=== PATIENT | female | born 1960 | race Caucasian/White ===

== ENCOUNTER 2018-11-25 16:32 | Emergency (ER) | payer MEDICAID, SELFPAY ==
[2018-11-25 16:39] VITALS: BP 143/74; PULSE 93; RESP 12; TEMP 36.8; O2SAT 98
--- NOTE | 2018-11-25 16:45 | W.ED.GENAD ---
Discharge Plan Disposition Patient Disposition: HOME Condition: Fair Discharge Details Chief Complaint: EarProblem Clinical Impression: Otitis externa Primary Care Provider: Lilia Hernández ED Provider: Tiffany Aguilar Home Meds and New Rx's Prescriptions: Continued lisinopril-hydrochlorothiazide 1 EACH tablet 1 ea PO DAILY RF: 0 L. acidophilus-dig enz cmb 5 [Probiotic-Digestive Enzymes] 1 EACH capsule 2 ea PO DAILY RF: 0 Brewers Yeast 1,000 mg PO BID RF: 0 venlafaxine [Effexor XR] 37.5 MG capsule,extended release 24hr 75 mg PO DAILY RF: 0 venlafaxine 75 mg Tablet 75 mg PO DAILY RF: 0 omeprazole 20 mg Tablet,Disintegrat, Delay Rel 10 - 20 mg PO PRN PRNRF: 0 No Action aspirin [Aspir-81] 81 MG tablet,delayed release (DR/EC) 81 mg PO DAILY RF: 0 Discharge Instructions Instructions: Otitis Externa (ED) Additional Instructions: Encourage hydration. Please continue with antibiotic drops as prescribed by primary care. Please follow-up with primary care on Saturday as previously recommended. If you develop increased pain, fever/chills, discharge from the ear or the new/worsening symptoms please seek care urgently once again. Referrals: Lilia Hernández [Primary Care Provider] - Discharge Data Discharge Date/Time-TO BE ENTERED AT DEPARTURE: 11/25/18 17:02 Medical Decision Making Patient is a 58-year-old female presenting today with chief complaint of left ear pain. She reports the pain began approximate 1 week ago. She was seen by her primary care 5 days ago was placed on Ciprodex eardrops. She reports that she had been using them and initially felt improved. Is now concerned that she is having difficulty with the eardrops going into the ear. On exam, her canal appears quite improved. Patient reports that primary care obtained a swab, do not see any exudate to suggest swallow area at this time. There is no erythema or swelling. No acute abnormalities of the tympanic membrane. No mastoid tenderness. Advised that the Ciprodex does appear to be improving. Advised that she continue with this. She is concerned that the eardrops continue to fall out, advised that she remain in a lateral decubitus position for 15 minutes after application of the drops, this was shown to the patient to continue with this. Advise follow-up with primary care on Saturday as it was previously scheduled. Advised on new/worsening symptoms that should prompt her to seek care urgently once again. All of her questions and concerns were addressed and she is in agreement this plan HPI General Mode of arrival: ambulatory. Date/Time Provider Initiated Documentation: 11/25/18 16:44. Limitations to Documentation: no limitations. Information obtained by: patient, family (accompanied by ) and RN notes reviewed. History of Present Illness 58 year old F presents to the emergency department with the chief complaint of left ear pain, described as moderate, with intensity rated at 5. Quality is described as aching, and is localized to the face. Patient reports no radiation. Patient started experiencing this day(s) (4) and it has been constant. Medication improves symptom(s), No exacerbating factors reported . Patient notes no other symptoms.; denies fever/chills, headaches, loss of appetite, nausea/vomiting, rash and shortness of breath. Patient did receive the following treatments prior to arrival, other (ciprodex drops) Related Data Home Medications Medication Instructions Recorded Confirmed Brewers Yeast 1,000 mg PO BID 05/21/16 07/10/16 L. acidophilus-dig enz cmb 5 2 ea PO DAILY 05/21/16 07/10/16 [Probiotic-Digestive Enzymes] aspirin [Aspir-81] 81 mg PO DAILY 05/21/16 07/10/16 lisinopril-hydrochlorothiazide 1 ea PO DAILY 05/21/16 11/25/18 venlafaxine [Effexor XR] 75 mg PO DAILY capcr 05/26/16 11/25/18 omeprazole 10 - 20 mg PO PRN PRN 11/25/18 11/25/18 venlafaxine 75 mg PO DAILY 11/25/18 11/25/18 Previous Rx's Medication Instructions Recorded venlafaxine [Effexor XR] 75 mg PO DAILY capcr 05/26/16 Allergies Allergy/AdvReac Type Severity Reaction Status Date / Time sulfamethoxazole Allergy Unknown Unverified 11/25/18 16:44 [From Bactrim] trimethoprim [From Bactrim] Allergy Unknown Unverified 11/25/18 16:44 vancomycin Allergy Unknown Red man Unverified 11/25/18 16:44 syndrome General Stated Complaint: EarProblem MARY: 4 Review of Systems Constitutional Reports as per HPI and Denies headache(s) Eyes Reports as per HPI, Denies eye discharge and Denies irritation ENT Reports as per HPI and Denies headache(s) Cardiovascular Reports as per HPI, Denies chest pain and Denies dyspnea Respiratory Reports as per HPI and Denies dyspnea Gastrointestinal Reports as per HPI, Denies abdominal pain, Denies change in bowel habits, Denies nausea and Denies vomiting Integumentary/Breasts Reports as per HPI and Denies rash Neurologic Reports as per HPI and Denies headache(s) PFSH Medical History Depression Essential hypertension GERD (gastroesophageal reflux disease) MRSA (methicillin resistant staph aureus) culture positive Surgical History Incision & Drainage, Abscess or Hematoma Social History Smoking/Tobacco Use Status: Never Alcohol Intake: never Drug use: Never Substance use type: does not use Do you feel safe at home: Yes Do you feel safe in your relationship?: Yes Exam Const General: cooperative, healthy appearing, comfortable, no acute distress, well developed and well groomed Nutritional Appearance: average body habitus and well nourished Orientation: alert and awake [facility] Head: normal to inspection, normocephalic and atraumatic Ears: hearing grossly normal bilaterally, external ears normal and TM's normal bilaterally General nose exam: external nose normal and nares normal Face and sinus: normal facial exam, sinuses nontender and face symmetric Mouth: oral mucosae normal, lip normal, tongue normal, oropharynx normal and moist mucous membranes Teeth and gingiva: dentition normal Throat: posterior oropharynx normal, tonsils normal and uvula midline Eyes General: appearance normal, both eyes and all related structures Neck Neck: normal visual inspection, full ROM, no lymphadenopathy and no meningeal signs Resp Effort & Inspection: normal respiratory effort, able to speak in complete sentences and no respiratory distress Auscultation: clear to auscultation bilaterally, no rales, no rhonchi and no wheezes Cardio Rate: regular rate Rhythm: regular rhythm Heart Sounds: S1 normal and S2 normal Skin General skin exam: no rashes or lesions noted Neuro General: alert and awake Cognition: normal cognition Speech: speech normal Gait: normal gait Psych Appearance: grossly normal and well kempt Mental Status: mental status grossly normal Speech and Movement: speech and movement normal Course Vital Signs Temperature 36.8 C 11/25/18 16:39 Pulse 93 H 11/25/18 16:39 Respiratory Rate 12 11/25/18 16:39 Blood Pressure 143/74 H 11/25/18 16:39 Pulse Oximetry 98 11/25/18 16:39 Temperature 36.8 C 11/25/18 16:39 Temperature Source Temporal Artery Scan 11/25/18 16:39 Pulse 93 H 11/25/18 16:39 Respiratory Rate 12 11/25/18 16:39 Respiratory Effort Non-Labored 11/25/18 16:42 Blood Pressure 143/74 H 11/25/18 16:39 Blood Pressure Position Sitting 11/25/18 16:39 Pulse Oximetry 98 11/25/18 16:39 Oxygen Delivery Method Room Air 11/25/18 16:39 Oxygen Flow Rate 0 11/25/18 16:39 Pain Level 5 11/25/18 16:39
--- NOTE | 2018-11-25 16:59 | ED.GENADUL_ITS ---
Discharge Plan Disposition Patient Disposition: HOME Condition: Fair Discharge Details Chief Complaint: EarProblem Clinical Impression: Otitis externa Primary Care Provider: Lilia Hernández ED Provider: Tiffany Aguilar Home Meds and New Rx's Prescriptions: Continued lisinopril-hydrochlorothiazide 1 EACH tablet 1 ea PO DAILY RF: 0 L. acidophilus-dig enz cmb 5 [Probiotic-Digestive Enzymes] 1 EACH capsule 2 ea PO DAILY RF: 0 Brewers Yeast 1,000 mg PO BID RF: 0 venlafaxine [Effexor XR] 37.5 MG capsule,extended release 24hr 75 mg PO DAILY RF: 0 venlafaxine 75 mg Tablet 75 mg PO DAILY RF: 0 omeprazole 20 mg Tablet,Disintegrat, Delay Rel 10 - 20 mg PO PRN PRNRF: 0 No Action aspirin [Aspir-81] 81 MG tablet,delayed release (DR/EC) 81 mg PO DAILY RF: 0 Discharge Instructions Instructions: Otitis Externa (ED) Additional Instructions: Encourage hydration. Please continue with antibiotic drops as prescribed by [facility]. Please follow-up with primary care on Saturday as previously recommended. If you develop increased pain, fever/chills, discharge from the ear or the new/worsening symptoms please seek care urgently once again. Referrals: Lilia Hernández [Primary Care Provider] - Discharge Data Discharge Date/Time-TO BE ENTERED AT DEPARTURE: 11/25/18 17:02 Medical Decision Making Patient is a 58-year-old female presenting today with chief complaint of left ear pain. She reports the pain began approximate 1 week ago. She was seen by her primary care 5 days ago was placed on Ciprodex eardrops. She reports that she had been using them and initially felt improved. Is now concerned that she is having difficulty with the eardrops going into the ear. On exam, her canal appears quite improved. Patient reports that primary care obtained a swab, do not see any exudate to suggest swallow area at this time. There is no erythema or swelling. No acute abnormalities of the tympanic membrane. No mastoid tenderness. Advised that the Ciprodex does appear to be improving. Advised that she continue with this. She is concerned that the eardrops continue to fall out, advised that she remain in a lateral decubitus position for 15 minutes after application of the drops, this was shown to the patient to continue with this. Advise follow-up with primary care on Saturday as it was previously scheduled. Advised on new/worsening symptoms that should prompt her to seek care urgently once again. All of her questions and concerns were addressed and she is in agreement this plan HPI General Mode of arrival: ambulatory . Date/Time Provider Initiated Documentation: 11/25/18 16:44 . Limitations to Documentation: no limitations . Information obtained by: patient, family (accompanied by ) and RN notes reviewed . History of Present Illness 58 year old F presents to the emergency department with the chief complaint of left ear pain, described as moderate, with intensity rated at 5. Quality is described as aching, and is localized to the face. Patient reports no radiation. Patient started experiencing this day(s) (4) and it has been constant. Medication improves symptom(s), No exacerbating factors reported . Patient notes no other symptoms.; denies fever/chills, headaches, loss of appetite, nausea/vomiting, rash and shortness of breath. Patient did receive the following treatments prior to arrival, other (ciprodex drops) Related Data Home Medications Medication Instructions Recorded Confirmed Brewers Yeast 1,000 mg PO BID 05/21/16 07/10/16 L. acidophilus-dig enz cmb 5 2 ea PO DAILY 05/21/16 07/10/16 [Probiotic-Digestive Enzymes] aspirin [Aspir-81] 81 mg PO DAILY 05/21/16 07/10/16 lisinopril-hydrochlorothiazide 1 ea PO DAILY 05/21/16 11/25/18 venlafaxine [Effexor XR] 75 mg PO DAILY capcr 05/26/16 11/25/18 omeprazole 10 - 20 mg PO PRN PRN 11/25/18 11/25/18 venlafaxine 75 mg PO DAILY 11/25/18 11/25/18 Previous Rx's Medication Instructions Recorded venlafaxine [Effexor XR] 75 mg PO DAILY capcr 05/26/16 Allergies Allergy/AdvReac Type Severity Reaction Status Date / Time sulfamethoxazole Allergy Unknown Unverified 11/25/18 16:44 [From Bactrim] trimethoprim [From Bactrim] Allergy Unknown Unverified 11/25/18 16:44 vancomycin Allergy Unknown Red man Unverified 11/25/18 16:44 syndrome General Stated Complaint: EarProblem MARY: 4 Review of Systems Constitutional Reports as per HPI and Denies headache(s) Eyes Reports as per HPI, Denies eye discharge and Denies irritation ENT Reports as per HPI and Denies headache(s) Cardiovascular Reports as per HPI, Denies chest pain and Denies dyspnea Respiratory Reports as per HPI and Denies dyspnea Gastrointestinal Reports as per HPI, Denies abdominal pain, Denies change in bowel habits, Denies nausea and Denies vomiting Integumentary/Breasts Reports as per HPI and Denies rash Neurologic Reports as per HPI and Denies headache(s) PFSH Medical History Depression Essential hypertension GERD (gastroesophageal reflux disease) MRSA (methicillin resistant staph aureus) culture positive Surgical History Incision & Drainage, Abscess or Hematoma Social History Smoking/Tobacco Use Status: Never Alcohol Intake: never Drug use: Never Substance use type: does not use Do you feel safe at home: Yes Do you feel safe in your relationship?: Yes Exam Const General: cooperative, healthy appearing, comfortable, no acute distress, well developed and well groomed Nutritional Appearance: average body habitus and well nourished Orientation: alert and awake [facility] Head: normal to inspection, normocephalic and atraumatic Ears: hearing grossly normal bilaterally, external ears normal and TM's normal bilaterally General nose exam: external nose normal and nares normal Face and sinus: normal facial exam, sinuses nontender and face symmetric Mouth: oral mucosae normal, lip normal, tongue normal, oropharynx normal and moist mucous membranes Teeth and gingiva: dentition normal Throat: posterior oropharynx normal, tonsils normal and uvula midline Eyes General: appearance normal, both eyes and all related structures Neck Neck: normal visual inspection, full ROM, no lymphadenopathy and no meningeal signs Resp Effort & Inspection: normal respiratory effort, able to speak in complete sentences and no respiratory distress Auscultation: clear to auscultation bilaterally, no rales, no rhonchi and no wheezes Cardio Rate: regular rate Rhythm: regular rhythm Heart Sounds: S1 normal and S2 normal Skin General skin exam: no rashes or lesions noted Neuro General: alert and awake Cognition: normal cognition Speech: speech normal Gait: normal gait Psych Appearance: grossly normal and well kempt Mental Status: mental status grossly normal Speech and Movement: speech and movement normal Course Vital Signs Temperature 36.8 C 11/25/18 16:39 Pulse 93 H 11/25/18 16:39 Respiratory Rate 12 11/25/18 16:39 Blood Pressure 143/74 H 11/25/18 16:39 Pulse Oximetry 98 11/25/18 16:39 Temperature 36.8 C 11/25/18 16:39 Temperature Source Temporal Artery Scan 11/25/18 16:39 Pulse 93 H 11/25/18 16:39 Respiratory Rate 12 11/25/18 16:39 Respiratory Effort Non-Labored 11/25/18 16:42 Blood Pressure 143/74 H 11/25/18 16:39 Blood Pressure Position Sitting 11/25/18 16:39 Pulse Oximetry 98 11/25/18 16:39 Oxygen Delivery Method Room Air 11/25/18 16:39 Oxygen Flow Rate 0 11/25/18 16:39 Pain Level 5 11/25/18 16:39
== END 2018-11-25 17:02 | disposition home or self-care (01) ==
LOC: ER 17:03
PROVIDERS: Emergency Provider Physician Assistant; PCP Family Medicine
DX: H66.92 Otitis media, unspecified, left ear (principal); I10 Essential (primary) hypertension
CPT/HCPCS: 99282

== ENCOUNTER 2019-06-02 15:14 | Emergency (ER) | payer MEDICAID, SELFPAY ==
[2019-06-02 15:25] VITALS: BP 137/74; PULSE 85; RESP 20; TEMP 36.4; O2SAT 100
--- NOTE | 2019-06-02 15:29 | W.ED.GENAD ---
Discharge Plan Disposition Patient Disposition: HOME Condition: Improving Discharge Details Chief Complaint: Urinary Clinical Impression: Urinary tract infection Primary Care Provider: Lilia Hernández ED Provider: Abel Carvajal Home Meds and New Rx's Prescriptions: New phenazopyridine [Pyridium] 100 mg tablet 100 mg PO TID 2 Days Qty: 6 RF: 0 cephalexin 500 mg capsule 500 mg PO TID 7 Days Qty: 21 RF: 0 Continued Brewers Yeast 1,000 mg PO BID RF: 0 venlafaxine [Effexor XR] 37.5 MG capsule,extended release 24hr 75 mg PO DAILY RF: 0 lisinopril-hydrochlorothiazide 20-25 mg Tablet 1 tab PO DAILY RF: 0 calcium carbonate [Calcium 600] 600 mg calcium (1,500 mg) Tablet 1,200 mg PO BID RF: 0 biotin 5,000 mcg Tablet, Sublingual 5,000 mcg SUBLINGUAL DAILY RF: 0 Cbd Oil 600 mg PO BID RF: 0 Gota Joni 475 mg PO BID RF: 0 omeprazole 20 mg Tablet,Disintegrat, Delay Rel 10 - 20 mg PO PRN PRNRF: 0 Discharge Instructions Instructions: Urinary Tract Infection in Women (ED) Additional Instructions: Home to rest today. Small, frequent sips of fluids to maintain hydration. Take medications as prescribed. Follow-up with [facility] if not improving in 3 to 5 days time. Return to the emergency department for any acute concerns Medical Decision Making 59-year-old female presents from home with 4 to 5 days of general malaise, foul-smelling urine, mild nausea without emesis. She denies any other subjective positives on review of systems. She has normal vital signs and her exam is notable for mild suprapubic tenderness. Urinalysis obtained with positive leuk esterase, micro urinalysis with a number of casts, few transitional cells, white blood cells. Given her history of interstitial cystitis, I will opt to treat with a curse of antibiotics. HPI General Mode of arrival: ambulatory. Date/Time Provider Initiated Documentation: 06/02/19 15:16. Limitations to Documentation: no limitations. Information obtained by: patient. History of Present Illness 59 year old F presents to the emergency department with the chief complaint of 5 days general malaise, weakness, foul-smelling urine, described as mild, and it has been intermittent. No relieving factors improve symptom(s), No exacerbating factors reported . Patient notes no other symptoms.. Patient did receive the following treatments prior to arrival, none Related Data Home Medications Medication Instructions Recorded Confirmed Brewers Yeast 1,000 mg PO BID 05/21/16 06/02/19 venlafaxine [Effexor XR] 75 mg PO DAILY capcr 05/26/16 06/02/19 omeprazole 10 - 20 mg PO PRN PRN 11/25/18 06/02/19 Cbd Oil 600 mg PO BID 06/02/19 Gota Joni 475 mg PO BID 06/02/19 biotin 5,000 mcg SUBLINGUAL DAILY 06/02/19 06/02/19 calcium carbonate [Calcium 600] 1,200 mg PO BID 06/02/19 06/02/19 cephalexin 500 mg PO TID 7 Days #21 cap 06/02/19 lisinopril-hydrochlorothiazide 1 tab PO DAILY 06/02/19 06/02/19 phenazopyridine [Pyridium] 100 mg PO TID 2 Days #6 tab 06/02/19 Previous Rx's Medication Instructions Recorded venlafaxine [Effexor XR] 75 mg PO DAILY capcr 05/26/16 cephalexin 500 mg PO TID 7 Days #21 cap 06/02/19 phenazopyridine [Pyridium] 100 mg PO TID 2 Days #6 tab 06/02/19 Allergies Allergy/AdvReac Type Severity Reaction Status Date / Time sulfamethoxazole Allergy Unknown Unverified 06/02/19 15:30 [From Bactrim] trimethoprim [From Bactrim] Allergy Unknown Unverified 06/02/19 15:30 vancomycin Allergy Unknown Red man Unverified 06/02/19 15:30 syndrome General Stated Complaint: Urinary MARY: 3 Review of Systems Narrative: 6 systems reviewed and otherwise neg. No pain. Hx of interstitial cystitis. [facility] Medical History Depression Essential hypertension GERD (gastroesophageal reflux disease) MRSA (methicillin resistant staph aureus) culture positive Social History Smoking/Tobacco Use Status: Never Alcohol Intake: never Drug use: Never Substance use type: does not use Do you feel safe at home: Yes Do you feel safe in your relationship?: Yes Exam Narrative Exam Narrative: GEN: awake, alert, oriented 3. Pleasant, well groomed, interactive. HEAD: Normocephalic, atraumatic ENT: Mucous membranes moist, oropharynx unremarkable, External ear exam unremarkable EYES: PERRL, EOMI NECK: Full ROM, no ALICE, no menigismus CHEST/RESP: Nontender, clear to auscultation bilateral, no wheeze/rhonchi/rales CARDIOVASCULAR: RRR, no murmur, rub david. 2+ Rad pulse bilateral ABDOMEN: Soft, minimal tenderness in the suprapubic region without rebound or guarding, no mass. +Bowel sounds EXT: Full ROM, no edema, no rash Neuro: Grossly normal neurologic exam, conversant, interactive. Psych: Speech fluent, thoughts congruent, affect mildly anxious Course Vital Signs Vital signs: Vital Signs Temperature 36.4 C 06/02/19 15:25 Pulse 85 06/02/19 15:25 Respiratory Rate 20 06/02/19 15:25 Blood Pressure 137/74 06/02/19 15:25 Pulse Oximetry 100 06/02/19 15:25 Temperature 36.4 C 06/02/19 15:25 Temperature Source Oral 06/02/19 15:25 Pulse 85 06/02/19 15:25 Respiratory Rate 20 06/02/19 15:25 Respiratory Effort Non-Labored 06/02/19 15:29 Blood Pressure 137/74 06/02/19 15:25 Blood Pressure Position Supine 06/02/19 15:25 Pulse Oximetry 100 06/02/19 15:25 Oxygen Delivery Method Room Air 06/02/19 15:25 Oxygen Flow Rate 0 06/02/19 15:25 Pain Level 0 06/02/19 15:25
[2019-06-02 15:30] LABS: Bilirubin Negative (Negative); Blood Negative (Negative); Clarity Clear (Clear); Glucose Negative (Negative); Ketones Trace mg/dL (Negative); Leukocyte Esterase Trace (Negative); Nitrite Negative (Negative); Specific Gravity 1.015 (1.005-1.025); Urobilinogen 0.2 EU/dL (Up TO 0.2); pH 8.5 (5-8)
[2019-06-02 15:46] LABS: Bacteria Negative HPF (Negative); Crystals Negative HPF (Negative); Epithelial Cells Few HPF (Negative); Mucus Trace (Negative); Other Cells Few Transitional (Negative); RBC 0-2 HPF (0-2)
[2019-06-02 15:47] LABS: C & S Indicated? Yes; Casts 20-50 Hyaline LPF (Negative)
== END 2019-06-02 16:01 | disposition home or self-care (01) ==
PROVIDERS: Emergency Provider Emergency Medicine; PCP Family Medicine
DX: N39.0 Urinary tract infection, site not specified (principal); I10 Essential (primary) hypertension
CPT/HCPCS: 99283; 81003; 81015; 87086

== ENCOUNTER 2019-06-04 16:16 | Emergency (ER) | payer MEDICAID, SELFPAY ==
[2019-06-04] VITALS (22 sets, daily range): BP systolic 119–144; BP diastolic 56–73; PULSE 62–91; RESP 12–20; TEMP 37.2; O2SAT 97–100
--- NOTE | 2019-06-04 16:48 | ED.GENADUL_ITS ---
Discharge Plan Disposition Patient Disposition: HOME Condition: Good Discharge Details Chief Complaint: GenMedical Clinical Impression: Acute dehydration Primary Care Provider: Lilia Hernández ED Provider: Liset Kidd Home Meds and New Rx's Prescriptions: No Action Brewers Yeast 1,000 mg PO BID RF: 0 venlafaxine [Effexor XR] 37.5 MG capsule,extended release 24hr 75 mg PO DAILY RF: 0 lisinopril-hydrochlorothiazide 20-25 mg Tablet 1 tab PO DAILY RF: 0 calcium carbonate [Calcium 600] 600 mg calcium (1,500 mg) Tablet 1,200 mg PO BID RF: 0 biotin 5,000 mcg Tablet, Sublingual 5,000 mcg SUBLINGUAL DAILY RF: 0 Cbd Oil 600 mg PO BID RF: 0 Gota Joni 475 mg PO BID RF: 0 cephalexin 500 mg capsule 500 mg PO TID 7 Days Qty: 21 RF: 0 omeprazole 20 mg Tablet,Disintegrat, Delay Rel 10 - 20 mg PO PRN PRNRF: 0 Discharge Instructions Instructions: Dehydration (ED) Additional Instructions: Drink plenty of fluids as discussed. Advanced diet as tolerated Follow-up with a electronic musical instrument repairer. We recommend [facility]. Phone number is [phone] Follow-up with your primary care doctor promptly for reevaluation. Incidental findings of note were a subcentimeter hypodense thyroid nodule which requires further outpatient evaluation. Small hypodense liver lesion which is likely a benign hemangioma should be discussed with your primary care doctor, bilateral renal scarring as well as a possible right renal cyst. Return to the emergency room for any signs of continued dehydration, ill feeling or worsening symptoms if needed Discharge Data Discharge Date/Time-TO BE ENTERED AT DEPARTURE: 06/05/19 00:15 Medical Decision Making This is a 59-year-old patient presenting to the emergency room today for 1 week of persistent malaise, now associated with abdominal cramping and nausea. Patient denies any focal fevers. Does report mild chills. Patient did report an episode of chest pain while exerting herself shoveling snow this was approximately 5 days ago. Patient has reported shortness of breath noted only with exertion, none at rest. Patient is quite vague in her complaints however is reporting a clear change in energy, weakness and fatigue compared to her baseline. Patient was seen in the emergency room 2 days ago diagnosed with cystitis and treated with antibiotics. Patient has been compliant with antibiotics but reports no significant improvement after 2 days of antibiotic use. Patient is accompanied by her brother who reports that this is a clear change from her baseline. He did make her dinner last night which she was able to eat. Patient complaining primarily of fatigue and weakness. Denies active chest pain. Denies active difficulty breathing or shortness of breath. Patient denies headache or dizziness at this time. Reviewed patient's previous urine culture which revealed mixed gram-positive cocci consistent with contaminant EKG on arrival reveals sinus rhythm with a rate of 76. No ST segment changes. This was reviewed with Dr. Castaneda. Labs ordered, IV fluids ordered. Given patient's complaints of shortness of breath and exertional chest pain d-dimer as well as troponins pending. Patient's labs do reveal no leukocytosis. Patient's lactate elevated to 2.2. Patient's creatinine 1.43 increased from her baseline. Patient's anion gap 19. Sodium 132. Patient does appear dehydrated. IV fluids provided, 2 L of IV fluid normal saline. Repeat of lactate at that time. Repeat of CMP. Troponins x2 remain negative. Patient does feel improved after IV fluid, reports more energy, reports improved weakness. Patient CT reveals no acute abnormality in the chest specifically no pulmonary embolism. There is a subcentimeter hypodense thyroid nodule which was discussed with the patient and encouraged outpatient follow-up. CT of her abdomen reveals a benign hemangioma which is also discussed, stool burden. Visualization of the lumen contents otherwise normal-appearing small bowel consistent with a delayed transit versus ileus. Patient with a no acute intra-abdominal emergency noted. Discussed admission to the hospital versus outpatient management. Patient's labs are repeated lactate normalized, gap significantly improved, sodium normalized and BUN/creatinine improved significantly. Likely patient was experiencing moderate dehydration. Patient does report she was recently diagnosed with celiac disease and is gluten allergic and has significantly changed her diet brother at the bedside reports she has not been eating very much as she is on accustomed to managing gluten-free diet. I am concerned that possibly she has been somewhat malnourished and dehydrated for this reason. Patient does feel significantly improved and does not feel she needs admission to the hospital at this time would prefer outpatient management. We did discuss managing and maintaining adequate diet. I did recommend referral to electronic musical instrument repairer, phone number provided to help assist her in managing a new diet program. Alarming symptoms discussed for which patient should return. Patient agrees with plan of care. The patient was stable and requested discharge. Prior to discharge, my usual and customary return precautions were reviewed with the patient - this included follow-up instructions and reasons to return to the Emergency Department if conditions worsens, does not improve as expected, or other new concerns arise. HPI General Date/Time Provider Initiated Documentation: 06/04/19 16:20 . HPI Narrative: Is a 59-year-old patient presenting for generalized malaise for the last week. Patient reports she was seen here 2 days ago and diagnosed with a urinary tract infection. Patient reports she has been compliant with antibiotics prescribed and reports no significant improvement in her symptoms which she would have expected by now. Patient is extremely vague in her description and history but reports fatigue, weakness, decreased energy for approximately 1 week. Patient does report mild chest pain when shoveling snow outside. Patient does report dyspnea on exertion. Denies a cough. Denies chest pain at this time. Denies dizziness. Denies headache. Denies obvious fever or chills is complaining of abdominal cramping in the last 24 to 48 hours as well as radiating symptoms toward her back. Patient denies obvious dysuria, urgency or frequency. Patient has been able to eat intermittent. Patient reports she spent a majority of the week laying on the couch fatigued. Brother at the bedside reports this is not her baseline. Patient reports nausea yesterday without vomiting. Denies any nasal congestion. Does report mild sore throat earlier in the week, since resolved. Denies voice change. Denies bowel change. Denies swelling of the legs. Related Data Home Medications Medication Instructions Recorded Confirmed Brewers Yeast 1,000 mg PO BID 05/21/16 06/02/19 venlafaxine [Effexor XR] 75 mg PO DAILY capcr 05/26/16 06/02/19 omeprazole 10 - 20 mg PO PRN PRN 11/25/18 06/02/19 Cbd Oil 600 mg PO BID 06/02/19 Gota Joni 475 mg PO BID 06/02/19 biotin 5,000 mcg SUBLINGUAL DAILY 06/02/19 06/02/19 calcium carbonate [Calcium 600] 1,200 mg PO BID 06/02/19 06/02/19 cephalexin 500 mg PO TID 7 Days #21 cap 06/02/19 lisinopril-hydrochlorothiazide 1 tab PO DAILY 06/02/19 06/02/19 Previous Rx's Medication Instructions Recorded venlafaxine [Effexor XR] 75 mg PO DAILY capcr 05/26/16 cephalexin 500 mg PO TID 7 Days #21 cap 06/02/19 Allergies Allergy/AdvReac Type Severity Reaction Status Date / Time sulfamethoxazole Allergy Unknown Unverified 06/02/19 15:30 [From Bactrim] trimethoprim [From Bactrim] Allergy Unknown Unverified 06/02/19 15:30 vancomycin Allergy Unknown Red man Unverified 06/02/19 15:30 syndrome General Stated Complaint: GenMedical MARY: 3 Review of Systems All systems reviewed & are unremarkable except as noted in HPI and below Constitutional Constitutional: Reports chills, Reports fatigue, Denies fever(s), Denies headache(s), Reports malaise and Reports weakness ENT Ears, Nose, Mouth, and Throat: Denies otalgia, Denies facial pain, Denies headac he(s), Denies neck pain, Denies sinus pain, Denies sinus pressure and Reports sore throat Cardiovascular Cardiovascular: Denies chest pain, Denies chest pain at rest, Reports chest pain with activity, Denies rapid heart rate, Denies edema, Denies leg edema, Denies lightheadedness, Denies radiating jaw, neck or arm pain, Denies palpitations and Reports dyspnea on exertion Respiratory Respiratory: Denies cough, Reports dyspnea on exertion and Denies wheezing Gastrointestinal Gastrointestinal: Reports abdominal pain, Reports cramping, Denies diarrhea, Reports nausea and Denies vomiting Genitourinary Genitourinary: Denies dysuria and Denies urinary urgency Musculoskeletal Musculoskeletal: Denies neck pain Neurologic Neurologic: Denies headache(s) and Reports weakness Endocrine Endocrine: Reports fatigue and Denies palpitations Allergic/Immunologic Allergic/Immunologic: Denies wheezing PFSH Medical History Depression Essential hypertension GERD (gastroesophageal reflux disease) MRSA (methicillin resistant staph aureus) culture positive Social History Smoking/Tobacco Use Status: Never Alcohol Intake: never Drug use: Never Substance use type: does not use Do you feel safe at home: Yes Do you feel safe in your relationship?: Yes Exam Narrative Exam Narrative: CONST: Fatigued appearing patient, in no acute distress. Alert and oriented. HENMT: Head nomocephalic, normal to inspection. Atraumatic. Hearing grossly normal. External ear canal no erythema or swelling. TM normal bilaterally. Nose normal to inspection. No rhinnorhea. Normal facial exam. Oral mucosa normal. Tounge normal. Dentition normal. Normal posterior oropharynx. Uvula midline. EYES: General normal appearance. Alignment normal. Eyelids normal. Conjunctiva normal. Sclera normal. PERRL. NECK: Normal visual inspection. FROM. No lymphadenopathy. Trachea midline. No Midline tenderness. CHEST: Normal insepection of the chest. RESP: Normal respiratory effort. Speaking full sentences. No cough. No wheezing. No retractions. Clear to auscaltation. Breath sound equal and present bilaterally. CARDIO: No JVD. Normal PMI. Regular Rate. Regular Rhythm. Normal peripheral pulses. GI: Normal inspection of abdomen. No distension. Soft. Periumbilical and mild suprapubic tenderness.. Bowel sounds present in all 4 quadrants. No rebound. No gaurding. MUSCULOSKELETAL: Normal Gait. FROM of all extremities. Distal neurovascularly intact. Sensation intact distally. SKIN: Normal. Dry. No rashes. NEURO: Alert and awake. Speech clear. PSYCH: Normal affect. Cooperative. Course Vital Signs Vital signs: Vital Signs Temperature 37.2 C 06/04/19 16:26 Pulse 77 06/04/19 16:26 Respiratory Rate 16 06/04/19 16:26 Blood Pressure 144/73 H 06/04/19 16:26 Pulse Oximetry 100 06/04/19 16:26 Temperature 37.2 C 06/04/19 16:26 Temperature Source Oral 06/04/19 16:26 Pulse 77 06/04/19 16:26 Respiratory Rate 16 06/04/19 16:26 Blood Pressure 144/73 H 06/04/19 16:26 Blood Pressure Position Sitting 06/04/19 16:26 Pulse Oximetry 100 06/04/19 16:26 Oxygen Delivery Method Room Air 06/04/19 16:26 Oxygen Flow Rate 0 06/04/19 16:26 Pain Level 5 06/04/19 16:26
[2019-06-04] MEDS: Normal Saline Flush 10 ML SYR IVP (17:00)
[2019-06-04] MEDS: Normal Saline 1,000 ML 1000 ML IV ×2 (17:00→19:40)
[2019-06-04 17:06] LABS: Abs Immature Grans 0.02 k/cumm (0.0-0.09); Absolute Basophil Count 0.03 k/cumm (0.0-0.2); Absolute Eosinophil Count 0.02 k/cumm (0.0-0.7); Absolute Lymphocyte Count 1.47 k/cumm (1.2-3.4); Absolute Monocyte Count 0.48 k/cumm (0.11-0.7); Absolute Neutrophil Count 5.07 k/cumm (1.2-6.7); Basophils % 0.4; Eosinophils % 0.3; HCT 38.6 % (36.0-46.0); HGB 13.4 g/dL (12.0-15.5); Immature Grans % 0.3 %; Lymphocytes % 20.7; Mean Corp. HGB Concentration 34.7 g/dL (32.0-36.0); Mean Corpuscular Hemoglobin 25.3 pg (27.0-33.0); Mean Corpuscular Volume 72.8 fL (80-95); Mean Platelet Volume 10.6 fL (8.0-11.0); Monocytes % 6.8; Neutrophils % 71.5; Platelet Count 344 x1000/uL (130-400); RBC Distribution Width 13.6 % (11.7-14.6); White Blood Cell Count 7.09 k/cumm (4.4-10.8)
[2019-06-04 17:15] LABS: Lactate 2.2 mmol/L (0.6-1.4)
[2019-06-04 17:31] LABS: ALT 37 U/L (14-59); AST 23 U/L (15-37); Albumin 4.2 g/dL (3.4-5.0); Alkaline Phosphatase 100 U/L (46-116); Anion Gap 19.2 mmol/L (3-11); BUN 37 mg/dL (7-18); Bilirubin, Total 0.6 mg/dL (0.2-1.0); CO2 18.8 mmol/L (21.0-32.0); CREATININE 1.48 mg/dL (0.55-1.02); Calcium 9.8 mg/dL (8.5-10.1); Chloride 94 mmol/L (98-107); Estimated GFR 35.85 (mL/min/1.73m2); Glucose 97 mg/dL (74-106); Lipase 302 U/L (73-393); Potassium 3.5 mmol/L (3.5-5.1); Sodium 132 mmol/L (136-145); Total Protein 8.1 g/dL (6.4-8.2)
[2019-06-04 17:36] LABS: D-Dimer 514 ng/mlFEU (<500)
[2019-06-04 17:43] LABS: Bilirubin Negative (Negative); Blood Negative (Negative); Clarity Clear (Clear); Glucose 100 mg/dL (Negative); Ketones Trace mg/dL (Negative); Leukocyte Esterase Negative (Negative)
[2019-06-04 17:47] LABS: Troponin I < 0.05 ng/Ml (<0.06)
[2019-06-04 18:01] LABS: Bacteria Negative HPF (Negative); C & S Indicated? No; Crystals Negative HPF (Negative); Epithelial Cells Moderate HPF (Negative); Mucus Negative (Negative); Other Cells Mod Transitional (Negative); RBC 0-2 HPF (0-2)
[2019-06-04 18:04] LABS: Microcytosis 1+
--- NOTE | 2019-06-04 19:45 | NUR.NOTE ---
Nursing Note: Pt able to stand and transfer to bedside commode with stand by assist only.
[2019-06-04 20:56] LABS: Troponin I < 0.05 ng/Ml (<0.06)
[2019-06-04] MEDS: Omnipaque 350 MG/ML 100 ML BTL IJ (20:59)
--- NOTE | 2019-06-04 21:05 | DI.CT_ITS ---
EXAM: CT CHEST PE ABD PELVIS W CLINICAL HISTORY: malaise, Chest pain, SOB, abd pain TECHNIQUE: CT examination of the chest, abdomen and pelvis was performed with a bolus infusion of 10 0 cc of Omnipaque 350. COMPARISON: PELVIC/LOWER ABD WITHOUT CONT from 05/21/2016 FINDINGS: Images obtained through the lower cervical region show a 17 millimeter in diameter left thyroid nodu le, thyroid ultrasound suggested for further evaluation. No evidence of pulmonary embolic disease. No thoracic aortic dissection or aneurysm. Lungs are pred ominantly clear. Subpleural emphysema noted. No mediastinal or hilar adenopathy. No pleural effusi on. Likely small hemangioma right hepatic lobe, posterior segment, less than 1 cm in diameter. Otherwise liver is unremarkable in appearance. No biliary dilatation. Gallbladder CT normal. Pancreas is un remarkable as is the spleen. Abdominal aorta is of normal diameter and no major vascular abnormality is seen. Major branches of the abdominal aorta are unremarkable except for question slight narrowin g of the origin of left renal artery, left renal atrophy is noted, presumably chronic. No urinary tr act calcification or obstruction. Adrenals are unremarkable. No abdominal or pelvic adenopathy. No significant abdominal wall hernia seen. Appendix is normal. No evidence of diverticulitis. IMPRESSION: No evidence of vascular abnormality of the chest, abdomen or pelvis except for narrowing of the origi n of the left renal artery which is not ideally visualized. Left renal atrophy noted.
--- NOTE | 2019-06-04 22:06 | DI.VRAD_ITS ---
PROCEDURE INFORMATION: Exam: CT Angiography Chest Without And With Contrast Exam date and time: 06/04/2019 8:56 PM Age: 59 years old Clinical indication: Other: Malaise, chest pain, SOB; Abdominal pain; Generalized TECHNIQUE: Imaging protocol: Computed tomographic angiography of the chest without and with intravenous contrast. 3D rendering: MIP and/or 3D reconstructed images were created by the technologist. Radiation optimization: All CT scans at this facility use at least one of these dose optimization techniques: automated exposure control; mA and/or kV adjustment per patient size (includes targeted exams where dose is matched to clinical indication); or iterative reconstruction. Contrast material: OMNIPAQUE 350; Contrast volume: 100 ml; Contrast route: IV; COMPARISON: No relevant prior studies available. FINDINGS: Pulmonary arteries: No pulmonary embolism. Aorta: Normal caliber and appearance of the thoracic aorta without acute injury. Thyroid: Several subcentimeter hypodense thyroid nodules. Lungs: Bilateral dependent atelectasis. Pleural space: Trace pleural fat along the left major fissure adjacent to the lingula. Heart: Unremarkable. No cardiomegaly. No pericardial effusion. Lymph nodes: No adenopathy. Bones/joints: Unremarkable. No acute fracture. Soft tissues: Unremarkable. IMPRESSION: 1. No acute abnormality in the chest. 2. Subcentimeter hypodense thyroid nodules. Consider further evaluation with dedicated thyroid ultrasound on an outpatient basis. PROCEDURE INFORMATION: Exam: CT Abdomen Without And With Contrast Exam date and time: 06/04/2019 8:56 PM Age: 59 years old Clinical indication: Other: Malaise, chest pain, SOB; Abdominal pain; Generalized TECHNIQUE: Imaging protocol: Computed tomographic angiography images of the abdomen without and with intravenous contrast material. 3D rendering: MIP and/or 3D reconstructed images were created by the technologist. Radiation optimization: All CT scans at this facility use at least one of these dose optimization techniques: automated exposure control; mA and/or kV adjustment per patient size (includes targeted exams where dose is matched to clinical indication); or iterative reconstruction. Contrast material: OMNIPAQUE 350; Contrast volume: 100 ml; Contrast route: IV; COMPARISON: No relevant prior studies available. FINDINGS: Liver: Small linear hypodensity in hepatic segment 6/7 with suggestion of surrounding nodular enhancement is nonspecific but may represent a benign hemangioma.The liver is otherwise unremarkable. Gallbladder and bile ducts: The gallbladder is normal. Pancreas: The pancreas is normal. Spleen: The spleen is normal. Adrenals: The adrenal glands are normal. Kidneys and ureters: Bilateral renal parenchymal scarring consistent with prior infarct/injury simple appearing right inferior pole renal cyst. Stomach and bowel: Large stool and air burden throughout the large bowel. Fecalization of luminal contents in the otherwise normal-appearing small bowel. Appendix: The appendix is not definitely visualized. No secondary signs of appendicitis in the right lower quadrant. Intraperitoneal space: Unremarkable. No free air. No significant fluid collection. Vasculature: The aorta demonstrates mild atherosclerotic calcification. No aortic aneurysm. Lymph nodes: Unremarkable. No enlarged lymph nodes. Bladder: The bladder is normal. Reproductive: Unremarkable as visualized. Bones/joints: Unremarkable. No acute fracture. Soft tissues: Unremarkable. IMPRESSION: 1. No acute abnormality in the abdomen and pelvis. 2. Prominent air and stool burden throughout the large bowel. 3. Fecalization of luminal contents in the otherwise normal-appearing small bowel consistent with delayed transit/ileus. Dictated and Authenticated by: Brody Tavarez MD. Ordering:ZECHARIAH Hutchins MD
[2019-06-04 23:06] LABS: ALT 30 U/L (14-59); AST 19 U/L (15-37); Albumin 3.4 g/dL (3.4-5.0); Alkaline Phosphatase 85 U/L (46-116); Anion Gap 11.5 mmol/L (3-11); BUN 31 mg/dL (7-18); Bilirubin, Total 0.5 mg/dL (0.2-1.0); CO2 22.5 mmol/L (21.0-32.0); CREATININE 1.25 mg/dL (0.55-1.02); Calcium 8.2 mg/dL (8.5-10.1); Chloride 102 mmol/L (98-107); Estimated GFR 43.57 (mL/min/1.73m2); Glucose 102 mg/dL (74-106); Potassium 3.3 mmol/L (3.5-5.1); Sodium 136 mmol/L (136-145); Total Protein 5.9 g/dL (6.4-8.2)
--- NOTE | 2019-06-04 23:08 | NUR.NOTE ---
Nursing Note: Pt able to ambulate to bathroom with stand by assist. Gait steady. Tolerated well.
[2019-06-05 00:55] VITALS: BP 131/74; PULSE 86; RESP 16; O2SAT 99
== END 2019-06-05 00:15 | disposition home or self-care (01) ==
PROVIDERS: Emergency Provider Physician Assistant; PCP Family Medicine
DX: E86.0 Dehydration (principal); I10 Essential (primary) hypertension
CPT/HCPCS: 36415; 71275; 74177; 80053; 83690; 87449; 93005; 96360; 96361; 99285; 81003; 81015; 83605; 84484; 85025; 85379; 93010; 99284; J3490

== ENCOUNTER 2019-06-06 17:09 | Emergency (ER) | payer MEDICAID, SELFPAY ==
[2019-06-06] VITALS (21 sets, daily range): BP systolic 115–130; BP diastolic 56–68; PULSE 67–90; RESP 15–25; TEMP 36.3; O2SAT 98–100
--- NOTE | 2019-06-06 17:24 | ED.GENADUL_ITS ---
Discharge Plan Disposition Patient Disposition: HOME Condition: Good Discharge Details Chief Complaint: GenMedical Clinical Impression: Celiac disease Primary Care Provider: Lilia Hernández ED Provider: Tiffany Aguilar Home Meds and New Rx's Prescriptions: Continued Brewers Yeast 1,000 mg PO BID RF: 0 venlafaxine [Effexor XR] 37.5 MG capsule,extended release 24hr 75 mg PO DAILY RF: 0 lisinopril-hydrochlorothiazide 20-25 mg Tablet 1 tab PO DAILY RF: 0 calcium carbonate [Calcium 600] 600 mg calcium (1,500 mg) Tablet 1,200 mg PO BID RF: 0 biotin 5,000 mcg Tablet, Sublingual 5,000 mcg SUBLINGUAL DAILY RF: 0 Cbd Oil 600 mg PO BID RF: 0 Gota Joni 475 mg PO BID RF: 0 cephalexin 500 mg capsule 500 mg PO TID 7 Days Qty: 21 RF: 0 omeprazole 20 mg Tablet,Disintegrat, Delay Rel 10 - 20 mg PO PRN PRNRF: 0 Discharge Instructions Instructions: Celiac Disease (ED), Fatigue (ED) Additional Instructions: Encourage hydration. Please follow dietary recommendations, attached is recommendations on dietary changes for celiac as well as interstitial cystitis. I have asked her director career reach out to you regarding follow-up with local primary care as well as fruit loader machine operator. Try to encourage fruit and vegetable intake. Try to walk outside daily. If develop fever/chills, pain or other new/worsening symptoms please seek care urgently once again. Referrals: Lilia Hernández [Primary Care Provider] - Discharge Data Discharge Date/Time-TO BE ENTERED AT DEPARTURE: 06/06/19 19:35 Medical Decision Making Patient is 59-year-old female presents today with chief complaints of fatigue and generalized weakness. Has not noted any areas of focal weakness. She has been seen here twice in the past week with similar complaints. Her initial presenting issues noted to be more urinary base. She does have a history of recurrent interstitial cystitis. There was concern for infection at that point patient was begun on Keflex. Patient's culture revealed gram-positive mixed hailey. She was then seen once again 2 days ago at which time she was diagnosed with acute dehydration. She was given 2 L of fluid, responded well to this was discharged home. Patient also reports she was recently diagnosed with celiac disease. Seems very fixated on upset on her dietary changes as she has had limited diet secondary to this recurrent interstitial cystitis and is now restr icted further with the history of celiac disease. She is accompanied by her brother who seems quite supportive, he too is concerned regarding her dietary changes and is concerned for possible nutritional deficit. She denies any weight loss. Denies any headache, visual change, focal neurologic deficit. She initially been endorsing some back pain to the nurse but no CVA tenderness or spinal discomfort was elicited on exam. It seems to be more positional in the bed and resolved with repositioning. She denies fevers, chills, diarrhea, nausea. Denies any chest pain, shortness of breath. She does endorse some nasal congestion. On exam, patient is resting comfortably. She has a very flat affect and seems quite sad. Is not an imminent threat to herself or others. Did not seem to reflect in on this point we did discuss depression. Vital signs within normal limits. She appears well-hydrated. I am not finding any evidence of acute abnormality on physical exam. Plan for reevaluation of the labs given her level of dehydration a few days ago. Plan to also assess patient's thyroid as this may be contributing to her general fatigue. Patient received 1 L of fluids. Labs reviewed, no leukocytosis. Her potassium slightly low at 3.3, I do not feel that this contributes for her symptoms. TSH within normal limits. Patient's BUN is downtrending, currently at 24. Her creatinine is 1.22. Patient has had elevated creatinine since 2016 and this is unchanged. Again, this is also downtrending from 2 days ago. Did not feel the patient has severe dehydration today. We discussed possible sources associated with her generalized weakness. She also seems upset with the fact that she has not wanted to get out of the house. Patient appears to have a depressed affect and I did discuss this possibility with the patient and her brother. I advised that the known celiac disease could be the source of her fatigue and this, along with her changes in restricted diet, could be causing the patient to have episodic depression. Patient and her brother seem very open to this idea and do agree with this assessment. She has been referred to a fruit loader machine operator, I have asked our care management team to help facilitate follow-up with this. Patient would also like a local primary care. I have asked that she follow-up with her urologist regarding her dietary restrictions for interstitial cystitis. I did give patient information from up-to-date regarding dietary restrictions for both the interstitial cystitis as well as celiac. I have made suggestions on broadening her diet intake. She was given strict return precautions. I encouraged to to walk outside daily, try to engage more with others and get out of the house more. Also encouraged to consider counselor. All of her questions and concerns were addressed and she is in agreement this plan. She will return with any new or worsening symptoms. HPI General Mode of arrival: ambulatory . Date/Time Provider Initiated Documentation: 06/06/19 17:18 . Limitations to Documentation: no limitations . Information obtained by: patient and family (brother) . History of Present Illness 59 year old F presents to the emergency department with the chief complaint of weakness, described as moderate and similar to prior episodes (similar to when she was here 2 days ago), Patient started experiencing this year(s) (acute on chronic, reports symptoms began 4 years ago) and it has been intermittent. No relieving factors improve symptom(s), No exacerbating factors reported . Patient notes weakness (generalized, described more as fatigue); denies chest pain, cough, diaphoresis, fever/chills, headaches, loss of appetite, nausea/vomiting, rash, shortness of breath and syncope. Patient did receive the following treatments prior to arrival, none Related Data Home Medications Medication Instructions Recorded Confirmed Brewers Yeast 1,000 mg PO BID 05/21/16 06/06/19 venlafaxine [Effexor XR] 75 mg PO DAILY capcr 05/26/16 06/06/19 omeprazole 10 - 20 mg PO PRN PRN 11/25/18 06/06/19 Cbd Oil 600 mg PO BID 06/02/19 06/06/19 Gota Joni 475 mg PO BID 06/02/19 06/06/19 biotin 5,000 mcg SUBLINGUAL DAILY 06/02/19 06/06/19 calcium carbonate [Calcium 600] 1,200 mg PO BID 06/02/19 06/06/19 cephalexin 500 mg PO TID 7 Days #21 cap 06/02/19 lisinopril-hydrochlorothiazide 1 tab PO DAILY 06/02/19 06/06/19 Previous Rx's Medication Instructions Recorded venlafaxine [Effexor XR] 75 mg PO DAILY capcr 05/26/16 cephalexin 500 mg PO TID 7 Days #21 cap 06/02/19 Allergies Allergy/AdvReac Type Severity Reaction Status Date / Time sulfamethoxazole Allergy Unknown Unverified 06/06/19 17:18 [From Bactrim] trimethoprim [From Bactrim] Allergy Unknown Unverified 06/06/19 17:18 vancomycin Allergy Unknown Red man Unverified 06/06/19 17:18 syndrome General Stated Complaint: GenMedical MARY: 3 Review of Systems Constitutional Constitutional: Reports as per HPI, Denies chills, Reports fatigue, Denies fever(s), Denies headache(s), Denies lethargy, Denies poor appetite and Denies weight loss Eyes Eyes: Denies change in vision ENT Ears, Nose, Mouth, and Throat: Denies dizziness, Denies headache(s) and Reports nasal congestion Cardiovascular Cardiovascular: Reports as per HPI, Denies chest pain, Denies chest pain at rest, Denies chest pain with activity, Denies diaphoresis, Denies pedal edema, Denies leg edema, Denies radiating jaw, neck or arm pain, Denies palpitations, Denies dyspnea and Denies dyspnea on exertion Respiratory Respiratory: Reports as per HPI, Denies chest congestion, Denies cough, Denies pain on inspiration, Denies pain with cough, Denies dyspnea, Denies dyspnea on exertion and Denies wheezing Gastrointestinal Gastrointestinal: Reports as per HPI, Denies abdominal pain, Denies diarrhea, Denies nausea and Denies vomiting Musculoskeletal Musculoskeletal: Reports as per HPI and Denies back pain (had initially reported flank pain, denies pain at this time or with exam) Integumentary/Breasts Skin/Breast: Reports as per HPI and Denies rash Neurologic Neurologic: Reports as per HPI, Denies dizziness and Denies headache(s) Endocrine Endocrine: Reports fatigue and Denies palpitations Allergic/Immunologic Allergic/Immunologic: Denies wheezing PFSH Medical History Depression Essential hypertension GERD (gastroesophageal reflux disease) MRSA (methicillin resistant staph aureus) culture positive Social History Smoking/Tobacco Use Status: Never Alcohol Intake: never Drug use: Never Substance use type: does not use Do you feel safe at home: Yes Do you feel safe in your relationship?: Yes Exam Const General: cooperative, healthy appearing, comfortable (appears fatigued but not acutely ill), no acute distress and well developed Nutritional Appearance: average body habitus and well nourished Orientation: alert, awake and oriented x3 [facility] Head: normal to inspection Ears: hearing grossly normal bilaterally Mouth: moist mucous membranes Neck Neck: normal visual inspection, full ROM and no meningeal signs Chest Chest: normal inspection of the chest, normal palpation of entire chest wall and no crepitus Resp Effort & Inspection: normal respiratory effort, able to speak in complete sentences and no respiratory distress Auscultation: clear to auscultation bilaterally, no rales, no rhonchi and no wheezes Cardio Rate: regular rate Rhythm: regular rhythm Heart Sounds: S1 normal and S2 normal GI Inspection: normal to inspection, no edema and non-distended Palpation: soft, no hepatosplenomegaly, not firm, no guarding, not rigid and nontender Auscultation: normal bowel sounds Back/Spine/Pelvis Back: no CVA tenderness Thoracic/Lumbar Spine: thoracic and lumbar spine normal to inspection, thoraco- lumbar ROM normal, No pain with thoraco-lumbar ROM, No paraspinal tenderness, No thoraco-lumbar ROM limited, No thoraco-lumbar spasm, No thoracic spinal tenderness and No lumbar spinal tenderness Skin General skin exam: no rashes or lesions noted Trauma: no lacerations or abrasions Neuro General: alert, awake and oriented x3 Cognition: normal cognition Speech: speech normal Gait: normal gait Extrem General: normal to inspection, normal capillary refill, no pedal edema, no calf tenderness and normal gait Psych Appearance: grossly normal and well kempt Mental Status: mental status grossly normal Speech and Movement: speech and movement normal Mood: congruent mood Affect: sad Attitude: cooperative Thought Process: perseverating Thought Content: normal (fixated on her current feelings of fatigue) Insight: insight good Judgment: judgment good Course Vital Signs Vital signs: Vital Signs Temperature 36.3 C L 06/06/19 17:15 Pulse 80 06/06/19 17:15 Respiratory Rate 22 06/06/19 17:15 Blood Pressure 125/62 06/06/19 17:15 Pulse Oximetry 100 06/06/19 17:15 Temperature 36.3 C L 06/06/19 17:15 Temperature Source Skin 06/06/19 17:15 Pulse 80 06/06/19 17:15 Respiratory Rate 22 06/06/19 17:15 Respiratory Effort Non-Labored 06/06/19 17:20 Blood Pressure 125/62 06/06/19 17:15 Blood Pressure Position Sitting 06/06/19 17:15 Pulse Oximetry 100 06/06/19 17:15 Oxygen Delivery Method Room Air 06/06/19 17:15 Oxygen Flow Rate 0 06/06/19 17:15
[2019-06-06] MEDS: Normal Saline 1,000 ML 1000 ML IV (18:05)
[2019-06-06 18:14] LABS: Abs Immature Grans 0.01 k/cumm (0.0-0.09); Absolute Basophil Count 0.06 k/cumm (0.0-0.2); Absolute Eosinophil Count 0.08 k/cumm (0.0-0.7); Absolute Lymphocyte Count 1.46 k/cumm (1.2-3.4); Absolute Monocyte Count 0.53 k/cumm (0.11-0.7); Absolute Neutrophil Count 3.56 k/cumm (1.2-6.7); Basophils % 1.1; Eosinophils % 1.4; HGB 12.1 g/dL (12.0-15.5); Immature Grans % 0.2 %; Lymphocytes % 25.6; Mean Corp. HGB Concentration 33.6 g/dL (32.0-36.0); Mean Corpuscular Hemoglobin 25.2 pg (27.0-33.0); Mean Platelet Volume 10.6 fL (8.0-11.0); Monocytes % 9.3; Neutrophils % 62.4; Platelet Count 333 x1000/uL (130-400); RBC Distribution Width 13.7 % (11.7-14.6)
[2019-06-06 18:34] LABS: ALT 33 U/L (14-59); AST 24 U/L (15-37); Albumin 3.8 g/dL (3.4-5.0); Alkaline Phosphatase 91 U/L (46-116); Anion Gap 12.6 mmol/L (3-11); BUN 24 mg/dL (7-18); Bilirubin, Total 0.4 mg/dL (0.2-1.0); CO2 24.4 mmol/L (21.0-32.0); CREATININE 1.22 mg/dL (0.55-1.02); Calcium 9.3 mg/dL (8.5-10.1); Chloride 101 mmol/L (98-107); Estimated GFR 44.81 (mL/min/1.73m2); Glucose 100 mg/dL (74-106); Magnesium 1.6 mg/dL (1.8-2.4); Potassium 3.3 mmol/L (3.5-5.1); Sodium 138 mmol/L (136-145); TSH (W/Ref FT4) 2.12 uIU/mL (0.36-3.74); Total Protein 7.2 g/dL (6.4-8.2)
[2019-06-06 18:35] LABS: Troponin I < 0.05 ng/Ml (<0.06)
== END 2019-06-06 19:35 | disposition home or self-care (01) ==
PROVIDERS: Emergency Provider Physician Assistant; PCP Family Medicine
DX: K90.0 Celiac disease (principal); F32.9 Major depressive disorder, single episode, unspecified; R53.1 Weakness; I10 Essential (primary) hypertension
CPT/HCPCS: 36415; 80053; 96360; 99284; 83735; 84443; 84484; 85025

== ENCOUNTER 2019-06-12 01:21 | Outpatient (CLI) | payer MEDICAID, SELFPAY ==
--- NOTE | 2019-06-12 15:25 | NS.NUTBLAN_ITS ---
Description: Birgit, with her brother report that she went to [facility] last year and was dx with Celiac Disease. She reports that she has been eating mostly gluten free but often is too tired to cook and ends up eating gluten containing convenience foods. Her mother in September 2018 and has not been able to work due to weakness/fatigue for entire year. She lives alone but her brother visits every other week to help. She reports she has not changed in weight and typically weighs 150-160 lbs, 5'4 with BMI of 26-27, often feels bloated and has loose stools after most meals. Appears very tired today, walking very slowly and having malaise. She is also concerned about what to eat for reducing UTI symptoms. She reports having MRSA and C. diff in 2017, admitted here at [facility] at that time for abx and has not felt well since. Estimated Needs: [id number] kcal, 60-70 g protein, 1800 ml fluid Diet Recall: 900 kcal, 45 g protein Assesment: Birgit has not been following a gluten free diet and therefore continues to have Gi complaints and most likely is deficient in multiple vitamins and minerals that may contribute to her malaise. Currently, she is meeting less than 70% of her calorie/protein needs. Educated Birgit and her brother about how to follow strict gluten free diet, also recommended avoiding dairy until intestines are healed which may take up to 90 days for villi regrowth. Recommended to follow up with PCP for lab work to assess nutritional deficiencies and needed supplementation. Birgit to include kombucha as a pro biotic daily. At high nutritional risk for anemia, B12 deficiency, Vit D deficiency, osteoporosis. Plan is for Birgit to follow up with her PCP next week and to follow up with me 07/14/19 to review weight, supplements and diet adherence.
== END 2019-06-12 01:41 ==
PROVIDERS: PCP Family Medicine; Visit Provider Family Medicine
DX: K90.0 Celiac disease (principal); E56.9 Vitamin deficiency, unspecified; Z71.3 Dietary counseling and surveillance
CPT/HCPCS: 97802

== ENCOUNTER 2019-06-25 01:13 | Outpatient (CLI) | payer MEDICAID, SELFPAY ==
--- NOTE | 2019-06-25 07:48 | ETT_ITS ---
APPROVED REPORT Exam: Exercise Treadmill Patient Location: Out-Patient Room/Bed: Stress Nurse: Richelle Alcantar RN BMI: 23.33 Baseline Rhythm: Sinus Rhythm Indications: Patient reports SOB with exertion and fatigue for the past year. She denies any other sy mptoms with SOB. Patient is vague. Medical History Medical History: GERD, Anxiety, Depression Cardiac Medications: Lisinopril/Hydrochlorothiazide Allergies: Bactrim, Vancomycin Cardiac Risk Factors: FHX of CAD, HTN Previous Cardiac Procedures: None Pretest Chest Pain Characteristics: None Exercise History: Sedentary Physical Disabilities: None Lung Sounds: Clear to auscultation Heart Sounds: Murmur Stress Test Details Test: Exercise stress testing was performed using a Yuval protocol. Rest Stress HR Max Heart Rate (APMHR): 159 bpm Resting HR Supine: 71 bpm Target HR (85% APMHR): 135 bpm Resting HR Standin bpm Max HR Achieved: 160 bpm % of APMHR: 100 HR response to stress: Normal HR response to stress BP Resting BP Supine: 134/80 mmHg Resting BP Standin/80 mmHg Max BP: 180/90 mmHg BP response to stress: Normal blood pressure response to stress. ECG Resting ECG: Sinus Rhythm ST Change: Normal Ectopy: Occasional PVC's Stress ECG: Sinus Tachycardia ST Change: Normal Arrhythmia: None Recovery ECG: Sinus Rhythm Recovery ST Change: Normal Recovery Arrhythmia: None Clinical Reason for Termination: Fatigue, Dyspnea Stress Symptoms: None Exercise duration: 5 min24 sec Highest Stage Achieved: Stage 2: 2.5 mph at 12% grade. Exercise capacity: 7.05 METs Functional Capacity: Average Capacity Stress ECG Conclusion 1. The patient exercised for 5min 24 sec (7METS). Exercise was stopped due to fatigue. 2. The patient achieved 100% of her predicted maximum heart rate. 3. There was no evidence of ischemia on the ECG portion of the exam. 4. The Wagoner Score (5) estimates an annual cardiovascular mortality of 1% and a five year survival of 94%. Using the Wagoner Score there is a low probability of any angiographic coronary disease. Protocol Used: Yuval Protocol Stress Test Summary STAGE Time (mins) Speed (mph) Grade (%) HR BP SYMPTOMS METS Supine 71 134/80 Standing 72 130/80 1 3 1.7 10 160 168/78 4.6 2 6 2.5 12 145 180/90 7 3 9 3.4 14 10.2 4 12 4.2 16 12.9 5 15 5.0 18 17.2 1 min recovery 145 180/78 3 min recovery 109 170/74 6 min recovery 94 140/70 9 min recovery 91 122/70
== END 2019-06-25 01:33 ==
PROVIDERS: PCP Nurse Practitioner; Visit Provider Nurse Practitioner
DX: R06.02 Shortness of breath (principal); R06.09 Other forms of dyspnea; R53.83 Other fatigue; F41.8 Other specified anxiety disorders; R68.89 Other general symptoms and signs; K21.9 Gastro-esophageal reflux disease without esophagitis; Z82.49 Family history of ischemic heart disease and other diseases of the circulatory system
CPT/HCPCS: 93017

== ENCOUNTER 2019-06-29 11:15 | Outpatient (REF) | payer MEDICAID, SELFPAY | END 2019-06-29 11:35 | LOC: LBN 11:15 | PROVIDERS: PCP Nurse Practitioner; Visit Provider Nurse Practitioner | DX: N30.10 Interstitial cystitis (chronic) without hematuria (principal); M54.9 Dorsalgia, unspecified | CPT/HCPCS: 87086 ==

== ENCOUNTER 2019-07-02 01:16 | Outpatient (CLI) | payer MEDICAID, SELFPAY ==
--- NOTE | 2019-07-02 12:21 | DI.US_ITS ---
EXAM: US THYROID CLINICAL HISTORY: thyroid nodule E04.1 TECHNIQUE: Ultrasound performed using standard protocol. COMPARISON: No exams were available for comparison FINDINGS: Thyroid ultrasound was performed according to the usual protocol. Right thyroid lobe measures 43 x 1 5 x 16 millimeters. Left thyroid lobe measures 43 x 14 x 18 millimeters. Thyroid isthmus is about 5 millimeters in thickness. There are multiple thyroid nodules, the largest a cystic nodule measuring about 17 millimeters in severiano meter. There is a solid 9 millimeters in greatest diameter mildly vascular lesion which measures 6 x 6 x 9 millimeters in diameter, this is heterogeneous and isoechoic to mildly hyperechoic, equally ta ll and wide. There may also be some small echogenic foci. The lesion is well circumscribed. This lesion is consistent with TI-RADS 4, follow-up ultrasound recommended in 6 months. IMPRESSION: TI-RADS 4, moderately suspicious lesion, follow-up ultrasound suggested 6 months.
[2019-07-02 12:47] LABS: ESR 10 mm/hr (0-30)
[2019-07-02 13:03] LABS: C-Reactive Protein 0.23 mg/dL (0.0-0.3)
[2019-07-03 13:02] LABS: IgA 166 mg/dL (85-499); Tissue Transglutaminase IgA <1.2 U/mL (<4.0)
[2019-07-03 14:14] LABS: ANA Interpretation Positive (Negative); ANA Titer Pattern 1:320 Speckled
[2019-07-03 15:02] LABS: Lyme Ab w Rflx to Lyme Confirm Negative (Negative)
== END 2019-07-02 01:36 ==
PROVIDERS: PCP Nurse Practitioner; Visit Provider Nurse Practitioner
DX: E04.1 Nontoxic single thyroid nodule (principal); E07.9 Disorder of thyroid, unspecified; R14.0 Abdominal distension (gaseous); R53.83 Other fatigue; M25.50 Pain in unspecified joint; R76.8 Other specified abnormal immunological findings in serum
CPT/HCPCS: 36415; 82784; 83516; 85652; 76536; 86038; 86140; 86618

== ENCOUNTER 2019-07-02 02:52 | Outpatient (CLI) | payer MEDICAID, SELFPAY ==
--- NOTE | 2019-07-02 | PFT_ITS ---
PULMONARY FUNCTION TEST REPORT Patient - Birgit Isaac DATE OF SERVICE July 02, 2019 REQUESTING PROVIDER Selena Mon NP INTERPRETATION OF STUDY Spirometry shows borderline mild obstructive airways disease. May represent a normal variant. No bronchodilator response. LUNG VOLUMES - Lung volumes show no evidence of restriction. DIFFUSION CAPACITY- Mildly reduced even when corrected to alveolar volume. AIRWAY RESISTANCE - Normal. IMPRESSION Borderline mild obstructive airways disease with no bronchodilator response. This may represent a normal variant. There is also mild diffusion defect. Clinical correlation recommended. Shyanne Baez M.D. JUDY/ T-07/03/19
[2019-07-02] MEDS: Inhaler, Assist Device 1 EACH MC (13:43)
[2019-07-02] MEDS: Albuterol HFA 18 GM 200 PUFF INH IH (13:44)
== END 2019-07-02 03:12 ==
PROVIDERS: PCP Nurse Practitioner; Visit Provider Nurse Practitioner
DX: R06.09 Other forms of dyspnea (principal); J43.9 Emphysema, unspecified
CPT/HCPCS: 94060; 94726; 94729

== ENCOUNTER 2019-07-13 01:58 | Outpatient (CLI) | payer MEDICAID, SELFPAY ==
--- NOTE | 2019-07-13 13:50 | DI.US_ITS ---
APPROVED REPORT EXAM: Comprehensive 2D, Doppler, and color-flow Echocardiogram Patient Location: Out-Patient Laundry Routeman: Cheryl Tucker RDCS (AE) Rhythm: NSR Indications: ORTIZ, poor exercise tolerance. Fatigue. R68.89 other general symptoms and signs. R06.09 other forms of dyspnea. R53.83 other fatigue Conclusion Normal left ventricular chamber size and wall thickness. Estimated ejection fraction is 65 to 70%. There are no segmental wall motion abnormalities There is no chamber enlargement There is no structural valvular heart disease Wall motion Left Ventricle The left ventricle is normal size. The left ventricular ejection fraction is within the normal range. There is normal left ventricular wall thickness. There is normal LV segmental wall motion. The left ventricular diastolic function is normal. LVEF is 65-70%. Right Ventricle The right ventricle is normal size. The right ventricular systolic function is normal. Atria The left atrium size is normal. The right atrium size is normal. Aortic Valve Aortic valve is trileaflet. There is no aortic valvular stenosis. No aortic regurgitation is present. Mitral Valve Mitral valve leaflets are mildly thickened. Trace mitral regurgitation. Tricuspid Valve The tricuspid valve leaflets are thickened , but open well. Trace to mild tricuspid regurgitation. Great Vessels The aortic root is normal in size. IVC is normal in size and collapses >50% with inspiration. Pericardium Prominent anterior epicardial fat pad is present. 2D Dimensions IVSD d PLAX 0.80 cm F: 0.6-1.0 LV Vol A2C d MOD 75.4 mL LVPW d PLAX 0.87 cm F: 0.6 - 1.0 LV Vol A4C d MOD 65.4 mL LVID d PLAX 4.31 cm F: 3.8 - 5.2 LA vol/ BSA A2C s A-L 21.7 mL/m2 LVDs 2.80 cm F: 2.2 - 3.5 LA vol/ BSA A4C s A-L 21.5 mL/m2 Ao Root d 3.09 cm F: 2.7 - 3.3 LA Vol/ BSA Biplane s A-L 21.8 mL/m2 RVID Base (AP4) 3.46 cm (M/F) 2.5-4.1 LA Area A4C s MOD 14.25 cm2 RA Area A4C 11.58 cm2 LA Area A2C s MOD 14.22 cm2 RA Vol/ BSA A4C s A-L 12.8 mL/m2 LV EF A4C MOD 64.1 % Ao Asc Diam d 3.17 cm F: 2.3 - 3.1 LV EF A2C MOD 60.9 % LV EF Teichholz 63.2 % LV EF Biplane MOD 62.2 % LVEF (Lewis's) 62.24 % F: 54 - 74 IVC Diam exp d SLAX 1.96 cm LV Volume 55.50 mL F: 46 - 106 LV Volume Index 31.35 mL/m2 F: 29 - 61 LV Vol Biplane MOD 71.0 mL FS 34.00 % M-Mode TAPSE 2.30 cm (M/F) <1.7 LV Diastology MV E' medial 0.167 (>0.07 m/s) E/A Ratio 1.1 LV E/e MED 4.35 (<14) MV E Vmax 0.73 (0.4-1.3 m/s) MV E' lateral 0.139 (>0.1 m/s) MV A Vmax 0.65 (0.4-1.3 m/s) LV E/e LAT 5.25 (<14) MV E/A Ratio 1.09 MV E/E' medial 4.37 MV E/E' lateral 5.25 Aortic Valve LVOT Area 2.50 cm2 AoV Area Vmax 1.69 cm2 LVOT Vmax 1.26 m/s AoV Area/ BSA (Vmax) 0.95 cm2/m2 LVOT Mean Esa. 0.89 m/s MARCO A Mean Esa. 1.79 cm2 LVOT Peak Grad 6.4 mmHg MARCO A Mean Esa. Index 1.01 cm2/m2 LVOT Mean Grad 3.5 mmHg LVOT VTI 0.253 m LVOT Diam s 1.75 cm (M/F) 1.5-2.5 AoV Vmax 1.86 (0.5-1.3 m/s) Velocity Ratio 0.67 AoV Mean Esa. 1.24 m/s AoV Peak Grad 13.8 mmHg LVOT SV 63.18 mL AoV Mean Grad 6.9 (<5 mmHg) AoV VTI 0.322 (0.18-0.25 m) AoV Area VTI 1.96 (2.5-4.5 cm2) AoV Area/ BSA (VTI) 1.10 cm/m2 Mitral Valve MV DT 230 (160-240 msec) MV PHT 67 msec MV Area PHT 3.30 cm2 MV VTI 0.152 m MV Area VTI 4.14 (4.0-6.0 cm2) Pulmonary Valve RVOT Peak Gr. 2.81 mmHg RVOT Mean Gr. 2.00 mmHg RVOT VTI 0.183 m RVOT Vmax 0.84 m/s Tricuspid Valve TR Peak Grad 31.6 mmHg TR Vmax 2.81 m/s RA Pressure 3.00 mmHg RVSP (TR) 34.6 mmHg
== END 2019-07-13 02:18 ==
PROVIDERS: PCP Nurse Practitioner; Visit Provider Nurse Practitioner
DX: R06.09 Other forms of dyspnea (principal); R53.83 Other fatigue; R68.89 Other general symptoms and signs
CPT/HCPCS: 93306

== ENCOUNTER 2019-07-20 01:02 | Outpatient (CLI) | payer MEDICAID, SELFPAY ==
--- NOTE | 2019-07-20 10:12 | DI.MAMMO_ITS ---
EXAM: MAMMO SCREENING CLINICAL HISTORY: screening Z12.39 TECHNIQUE: Mammograms were interpreted according to the usual protocol including computer analysis w [employer] CAD system, tomosynthesis and C-view imaging. COMPARISON: September 2017 FINDINGS: The breasts are of moderate density with fairly symmetrical distribution of fibroglandular tissue. N o dominant mass or clumped microcalcification is identified in either breast. Current examination is compared with previous examinations including September 2017 and there has been no gross interval change i n appearance in comparison with previous studies. IMPRESSION: No specific evidence of malignancy at this time. Routine screening examinations are suggested at year ly intervals due to the family history of breast carcinoma. Category 1, breast density category B.
== END 2019-07-20 01:22 ==
PROVIDERS: PCP Nurse Practitioner; Visit Provider Nurse Practitioner
DX: Z12.31 Encounter for screening mammogram for malignant neoplasm of breast (principal)
CPT/HCPCS: 77063; 77067

== ENCOUNTER 2019-07-20 11:12 | Outpatient (CLI) | payer MEDICAID, SELFPAY ==
[2019-07-20 13:00] LABS: Anion Gap 10.3 mmol/L (3-11); BUN 30 mg/dL (7-18); CO2 27.7 mmol/L (21.0-32.0); CREATININE 1.29 mg/dL (0.55-1.02); Calcium 9.2 mg/dL (8.5-10.1); Chloride 101 mmol/L (98-107); Estimated GFR 42.01 (mL/min/1.73m2); Glucose 104 mg/dL (74-106); Potassium 4.3 mmol/L (3.5-5.1); Sodium 139 mmol/L (136-145)
== END 2019-07-20 11:32 ==
PROVIDERS: PCP Nurse Practitioner; Visit Provider Internal Medicine Nephrology
DX: R79.89 Other specified abnormal findings of blood chemistry (principal)
CPT/HCPCS: 36415; 80048

== ENCOUNTER 2019-07-27 01:33 | Outpatient (CLI) | payer MEDICAID, SELFPAY ==
--- NOTE | 2019-07-27 | DI.US_ITS ---
EXAM: US RENAL CLINICAL HISTORY: CREATININE ELEVATION, R79.89 TECHNIQUE: Ultrasound performed using standard protocol. COMPARISON: CT CHEST PE ABD PELVIS W from 06/04/2019 FINDINGS: The prevoid bladder volume measured 159 cc. No bladder mass or wall thickening is seen. The postvoi d residual is 2 cc. Both ureteral jets were visualized. The right kidney measured 9.2 cm in length. An area of scarring is seen at near the upper pole. Nonobstructing stone is also seen near the upp er pole measuring 6 millimeters. A cyst is noted at the lower pole measuring 1.9 cm. The left kidne y has an atrophic appearance with areas of scarring. The left kidney measures 6.8 cm in length. No hydronephrosis is seen. IMPRESSION: Small left kidney. Bilateral areas of renal scarring left greater than right. No evidence of hydron ephrosis. DATA REPOSITORY:
== END 2019-07-27 01:53 ==
PROVIDERS: PCP Nurse Practitioner; Visit Provider Internal Medicine Nephrology
DX: R79.89 Other specified abnormal findings of blood chemistry (principal); N28.89 Other specified disorders of kidney and ureter; N28.1 Cyst of kidney, acquired
CPT/HCPCS: 76770

== ENCOUNTER 2019-07-27 09:23 | Outpatient (CLI) | payer MEDICAID, SELFPAY ==
[2019-07-27 11:25] LABS: TSH (W/Ref FT4) 1.94 uIU/mL (0.36-3.74)
[2019-07-28 12:19] LABS: Thyroglobulin Antibody 20 U/mL (<=60); Thyroperoxidase Antibody 42 U/mL (<=60)
== END 2019-07-27 09:43 ==
PROVIDERS: PCP Nurse Practitioner; Visit Provider Otolaryngology Otolaryngology/Facial Plastic Surgery
DX: E04.1 Nontoxic single thyroid nodule (principal)
CPT/HCPCS: 36415; 86376; 84443

== ENCOUNTER 2019-07-29 11:46 | Outpatient (REF) | payer MEDICAID, SELFPAY ==
[2019-07-29 14:40] LABS: Creatinine,Urine 21.13 mg/dL
[2019-07-29 14:50] LABS: CREATININE 1.31 mg/dL (0.55-1.02); Total Volume 3000 ml
[2019-07-29 14:51] LABS: Creatinine Clearance Urine 34 mls/min (97-137)
== END 2019-07-29 12:06 ==
LOC: LBN 11:46
PROVIDERS: PCP Nurse Practitioner; Visit Provider Internal Medicine Nephrology
DX: R79.89 Other specified abnormal findings of blood chemistry (principal)
CPT/HCPCS: 81050; 82575

== ENCOUNTER 2020-03-03 00:29 | Outpatient (CLI) | payer MEDICAID, SELFPAY ==
--- NOTE | 2020-03-03 | DI.US_ITS ---
EXAM: US THYROID CLINICAL HISTORY: F/U THYROID NODULE,E04.1 TECHNIQUE: Ultrasound performed using standard protocol. COMPARISON: US US THYROID from 07/02/2019 US US RENAL from 07/27/2019 FINDINGS: Today's thyroid ultrasound is compared with prior study of July 02, 2019. Prior study showed a 9 millimeter greatest diameter lower pole left thyroid lobe nodule, which was TR 5 by TI-RADS classific ation. This nodule measures slightly smaller on today's examination, measuring about 7 millimeters i n diameter. This is a solid lesion which is isoechoic and may have extrathyroidal extent. It is skyelr ler than wide and contains a macrocalcification. This remains a TR 5 lesion, follow-up ultrasound re commended. No change in the other thyroid lesions, which are not suspicious lesions. IMPRESSION: Follow-up examination shows no change or slight decrease in size of left thyroid lobe lower pole lesi on, TR 5. An additional follow-up ultrasound is recommended in 12 months. DATA REPOSITORY:
== END 2020-03-03 00:49 ==
PROVIDERS: PCP Nurse Practitioner; Visit Provider Otolaryngology Otolaryngology/Facial Plastic Surgery
DX: E04.1 Nontoxic single thyroid nodule (principal)
CPT/HCPCS: 76536

== ENCOUNTER 2020-08-15 11:55 | Outpatient (REF) | payer MEDICAID, SELFPAY | END 2020-08-15 11:56 | disposition home or self-care (01) | LOC: LBN 11:55 | PROVIDERS: PCP Nurse Practitioner; Visit Provider Nurse Practitioner | DX: R30.0 Dysuria (principal) | CPT/HCPCS: 87086 ==

== ENCOUNTER 2020-09-20 15:17 | Outpatient (REF) | payer MEDICAID, SELFPAY ==
--- NOTE | 2020-09-20 14:45 | PAPFT_PTH ---
PATIENT: Birgit Isaac LOC: [facility] U#:[id number] AGE/SX: 60/F ROOM: RE09/20/[address]: Selena Mon APRN : 1960 BED: DIS: 09/20/2020 SPEC #: [id number] RECD: 09/20/20 17:59 STATUS: DEREK LASSITER #: [id number] ELIS: 09/20/20 14:[address]: Selena Mon DEPT: [facility] Cytology RECD BY: Evie Lim Tissues: 1 - CX/ENDOCX FOR PAP SMEARS Procedures: PAP THIN PREP/UVM Screening HPV DNA PROBE Comments: [id number]
== END 2020-09-20 15:18 | disposition home or self-care (01) ==
LOC: LBN 15:17
PROVIDERS: PCP Nurse Practitioner; Visit Provider Nurse Practitioner
DX: Z12.4 Encounter for screening for malignant neoplasm of cervix (principal); Z87.42 Personal history of other diseases of the female genital tract; Z11.51 Encounter for screening for human papillomavirus (HPV); R87.810 Cervical high risk human papillomavirus (HPV) DNA test positive
CPT/HCPCS: 88142; 87624

== ENCOUNTER 2020-09-27 02:19 | Outpatient (CLI) | payer MEDICAID, SELFPAY ==
[2020-09-27 10:36] LABS: HCT 39.9 % (36.0-46.0); HGB 12.9 g/dL (11.2-15.7); MCH 25.2 pg (27.0-33.0); MCHC 32.3 % (32.0-36.0); MCV 77.9 fL (80-95); MPV 11.1 fL (8.0-11.0); Platelet Count 345 10^3/uL (130-400); RBC 5.12 10^6/uL (3.93-5.22); RDW 14.6 % (11.7-14.6); RDW-SD 41.1 fL; WBC 5.01 10^3/uL (4.4-10.8)
[2020-09-27 11:39] LABS: ALT 55 U/L (14-59); AST 25 U/L (15-37); Albumin 4.2 g/dL (3.4-5.0); Alkaline Phosphatase 94 U/L (46-116); Anion Gap 9.3 mmol/L (3-11); BUN 31 mg/dL (7-18); Bilirubin, Total 0.2 mg/dL (0.2-1.0); CO2 28.7 mmol/L (21.0-32.0); CREATININE 1.4 mg/dL (0.55-1.02); Calcium 9.4 mg/dL (8.5-10.1); Calculated LDL 185 mg/dL (<100); Chloride 100 mmol/L (98-107); Cholesterol 258 mg/dL (<200); Glucose 101 mg/dL (74-106); HDL Cholesterol 47 mg/dL (40-60); Potassium 4.6 mmol/L (3.5-5.1); Sodium 138 mmol/L (136-145); TSH (W/Ref FT4) 3.79 uIU/mL (0.36-3.74); Total Protein 7.9 g/dL (6.4-8.2); Triglyceride 132 mg/dL (<150)
[2020-09-27 11:57] LABS: FREE T4 0.88 ng/dL (0.76-1.46)
== END 2020-09-27 02:20 | disposition home or self-care (01) ==
LOC: LBO 02:19
PROVIDERS: PCP Nurse Practitioner; Visit Provider Nurse Practitioner
DX: I10 Essential (primary) hypertension (principal); R53.83 Other fatigue; N30.10 Interstitial cystitis (chronic) without hematuria; M79.7 Fibromyalgia; K58.9 Irritable bowel syndrome, unspecified
CPT/HCPCS: 36415; 80053; 80061; 85027; 84439; 84443

== ENCOUNTER 2020-10-10 07:55 | Outpatient (CLI) | payer MEDICAID, SELFPAY ==
[2020-10-11 13:24] LABS: COVID-19 RT-PCR UVMMC Result Negative (Negative)
== END 2020-10-10 07:56 | disposition home or self-care (01) ==
PROVIDERS: PCP Nurse Practitioner; Visit Provider Nurse Practitioner
DX: Z20.822 Contact with and (suspected) exposure to COVID-19 (principal)
CPT/HCPCS: U0003

== ENCOUNTER 2020-11-29 02:52 | Outpatient (CLI) | payer MEDICAID, SELFPAY ==
--- NOTE | 2020-11-29 09:00 | DI.MAMMO_ITS ---
Exam(s) MAMMO SCREENING EXAM: MAMMO SCREENING CLINICAL HISTORY: screening,FAMILY H/O BREAST CA,Z12.39,Z80.3 TECHNIQUE: Bilateral full field digital CC and MLO mammographic images were obtained with 3D tomosyn thesis and utilizing computer aided detection (CAD). COMPARISON: Available for comparison. FINDINGS: Masses/Architectural Distortion: None seen. Microcalcifications: No suspicious pleomorphic-type are seen. Skin Thickening/Nipple Retraction: None. IMPRESSION: 1. No significant interval change with no specific features of malignancy noted. 2. Unless there is more urgent need, screening mammography is recommended, as per [place] [employer] guidelines. BI-RADS Category 1 - Negative Breast Density - Category B - Scattered areas of fibroglandular density Breast density category C or D implies that the patient has dense breast tissue. Dense breast tissue is very common and is not abnormal but dense breast tissue can make it harder to find cancer on a ma mmogram. Also, dense breast tissue may increase their breast cancer risk. This information about the result of the mammogram report was provided to the patient to raise their awareness. Use this report when you speak with the patient about their risks for breast cancer, which includes their family hist ory. At that time, you may recommend for more screening tests (Ultrasound or MRI) as they might be us eful based on their risk. A negative radiographic report should not delay biopsy if a dominant or clinically suspicious mass is present. Up to ten percent of cancers are not identified on mammography. A negative report may reinforce clinical impression. Adenosis and dense breasts may obscure an underlying neoplasm. False positive reports average 6 to 10%. Patient will receive a letter notifying them of these results.
== END 2020-11-29 03:12 ==
PROVIDERS: PCP Nurse Practitioner; Visit Provider Nurse Practitioner
DX: Z12.31 Encounter for screening mammogram for malignant neoplasm of breast (principal); R92.8 Other abnormal and inconclusive findings on diagnostic imaging of breast; Z80.3 Family history of malignant neoplasm of breast
CPT/HCPCS: 77063; 77067

== ENCOUNTER 2020-12-05 16:38 | Outpatient (REF) | payer MEDICAID, SELFPAY ==
--- NOTE | 2020-12-05 14:30 | ENDO_PTH ---
PATIENT: Birgit Isaac LOC: [facility] U#:[id number] AGE/SX: 60/F ROOM: RE12/05/[address]: Callie Carolina : 1960 BED: DIS: 12/05/2020 SPEC #: [id number] RECD: 12/05/20 16:57 STATUS: DEREK LASSITER #: [id number] ELIS: 12/05/20 14:[address]: Callie Carolina DEPT: Surgical Specimen RECD BY: Evie Lim ENTERED: 12/05/20 16:58 SP TYPE: Endo OTHR DR: Selena Mon APRN Tissues: 1 - ENDOCERVICAL BX/CURRETTE 2 - CERVICAL BIOPSY Procedures: GROSS AND MICRO LEVEL 4 Comments: [id number]
== END 2020-12-05 16:39 | disposition home or self-care (01) ==
LOC: LBN 16:38
PROVIDERS: PCP Nurse Practitioner; Visit Provider Obstetrics & Gynecology Gynecology
DX: N85.01 Benign endometrial hyperplasia (principal); R87.810 Cervical high risk human papillomavirus (HPV) DNA test positive
CPT/HCPCS: 88305

== ENCOUNTER 2021-03-14 02:36 | Outpatient (CLI) | payer MEDICAID, SELFPAY ==
[2021-03-14 11:03] LABS: Total Iron Binding Capacity 372 ug/dL (250-450)
[2021-03-14 11:28] LABS: Calculated LDL 209 mg/dL (<100); Cholesterol 298 mg/dL (<200); Ferritin 55 ng/mL (8-252); HDL Cholesterol 64 mg/dL (40-60); Triglyceride 127 mg/dL (<150); Vitamin B12 563 pg/mL (193-986)
== END 2021-03-14 02:37 | disposition home or self-care (01) ==
LOC: LBO 02:36
PROVIDERS: PCP Nurse Practitioner; Visit Provider Nurse Practitioner
DX: R53.83 Other fatigue; L65.9 Nonscarring hair loss, unspecified; I10 Essential (primary) hypertension; E78.5 Hyperlipidemia, unspecified
CPT/HCPCS: 36415; 80061; 82607; 82728; 83550; 84443

== ENCOUNTER 2021-03-17 11:59 | Outpatient (CLI) | payer MEDICAID, SELFPAY ==
--- NOTE | 2021-03-17 11:45 | RT.EKG_ITS ---
APPROVED REPORT Exam: Resting ECG Reason for Exam: r/o afib Patient Location: O HR:80 bpm ECG Measurements Heart Rate 80 AXIS SD 141 P 41 QRSd 86 QRS -9 QT 346 T 56 QTc 399 Conclusion Sinus rhythm...normal P axis, V-rate 60- 99 Low voltage, precordial leads...precordial leads <1.0mV Otherwise normal
== END 2021-03-17 12:00 | disposition home or self-care (01) ==
LOC: DI.KIM 12:00
PROVIDERS: PCP Nurse Practitioner; Visit Provider Nurse Practitioner Adult Health
DX: R53.1 Weakness (principal); R55 Syncope and collapse
CPT/HCPCS: 93010

== ENCOUNTER 2021-03-17 12:41 | Outpatient (CLI) | payer MEDICAID, SELFPAY ==
--- NOTE | 2021-03-17 12:15 | DI.RAD_ITS ---
Exam(s) XR TIB/FIB RT EXAM: XR TIB/FIB RT CLINICAL HISTORY: r/o fx distal fib vs. lat ankle 1d s/p fall, PAIN LAT PORTION RT ANKLE. TECHNIQUE: 2D digital imaging was performed of the right tibia and fibula. To images were obtained. AP and lateral views were obtained. COMPARISON: No exams were available for comparison FINDINGS: BONES: There is a tiny density at the tip of the lateral malleolus which may represent a small avulse d fracture fragment. No bony destructive lesion is seen. Visualized portion of knee and ankle joints are unremarkable. SOFT TISSUE: Normal. IMPRESSION: Tiny density at the tip of the lateral malleolus which may represent a small avulsed fracture fragmen t. DATA REPOSITORY: RADIATION DOSE DELIVERED:
--- NOTE | 2021-03-17 12:15 | DI.RAD_ITS ---
Exam(s) XR ANKLE RT COMPLETE EXAM: XR ANKLE RT COMPLETE CLINICAL HISTORY: r/o fx distal fib vs. lat ankle 1d s/p fall, PAIN LATERAL PORTION RT ANKLE. TECHNIQUE: 2D digital imaging was performed of the right ankle. Three images were obtained. AP, la teral and oblique views were obtained. COMPARISON: No exams were available for comparison FINDINGS: BONES: On the oblique view, there is a question of a osseous fragment medial to the tip of the latera l malleolus. A mildly displaced avulsion fracture cannot be excluded. No bony destructive lesion is seen. JOINTS: The ankle mortise is normally aligned. SOFT TISSUE: Normal. IMPRESSION: Small osseous density is seen medial to the lateral malleolus on the oblique view suspicious for smal l avulsed fracture. DATA REPOSITORY: RADIATION DOSE DELIVERED:
[2021-03-17 13:06] LABS: Absolute Basophil Count 0.09 10^3/uL (0.0-0.2); Absolute Eosinophil Count 0.11 10^3/uL (0.0-0.7); Absolute Lymphocyte Count 1.85 10^3/uL (1.2-3.4); Absolute Monocyte Count 0.92 10^3/uL (0.1-0.8); Absolute Neutrophil Count 6.87 10^3/uL (1.2-6.7); Basophils % 0.9; Eosinophils % 1.1; HCT 42.1 % (36.0-46.0); HGB 13.6 g/dL (11.2-15.7); Lymphocytes % 18.6; MCHC 32.3 % (32.0-36.0); MCV 77.2 fL (80-95); MPV 10.9 fL (8.0-11.0); Monocytes % 9.3; Neutrophils % 69.1; Nucleated RBC 0 %; Platelet Count 322 10^3/uL (130-400); RBC 5.45 10^6/uL (3.93-5.22); RDW 13.9 % (11.7-14.6); RDW-SD 38.5 fL; WBC 9.94 10^3/uL (4.4-10.8)
[2021-03-17 13:27] LABS: ALT 40 U/L (14-59); AST 17 U/L (15-37); Albumin 3.8 g/dL (3.4-5.0); Alkaline Phosphatase 96 U/L (46-116); Anion Gap 9.1 mmol/L (3-11); BUN 49 mg/dL (7-18); Bilirubin, Total 0.3 mg/dL (0.2-1.0); CO2 26.9 mmol/L (21.0-32.0); CREATININE 1.6 mg/dL (0.55-1.02); Chloride 94 mmol/L (98-107); Estimated GFR 32.66 (mL/min/1.73m2); Glucose 104 mg/dL (74-106); Potassium 3.6 mmol/L (3.5-5.1); Sodium 130 mmol/L (136-145); TSH (W/Ref FT4) 2.94 uIU/mL (0.36-3.74); Total Protein 7.5 g/dL (6.4-8.2)
== END 2021-03-17 13:01 ==
PROVIDERS: PCP Nurse Practitioner; Visit Provider Nurse Practitioner Adult Health
DX: M25.571 Pain in right ankle and joints of right foot (principal); M85.871 Other specified disorders of bone density and structure, right ankle and foot; R53.83 Other fatigue; R55 Syncope and collapse; Z91.81 History of falling
CPT/HCPCS: 36415; 80053; 73590; 73610; 84443; 85025

== ENCOUNTER 2021-03-18 16:59 | Emergency (ER) | payer MEDICAID, SELFPAY ==
[2021-03-18] VITALS (32 sets, daily range): BP systolic 107–127; BP diastolic 50–66; PULSE 63–90; RESP 11–27; TEMP 36.4–36.7; O2SAT 90–100
--- NOTE | 2021-03-18 17:00 | RT.EKG_ITS ---
APPROVED REPORT Exam: Resting ECG Reason for Exam: low bp Patient Location: E HR:76 bpm ECG Measurements Heart Rate 76 AXIS HI 147 P 50 QRSd 99 QRS -10 QT 378 T 41 QTc 426 Conclusion Sinus rhythm...normal P axis, V-rate 60- 99. Sinus, No STEMI. I have reviewed and interpreted ECG and agree with software generated interpretation.
--- NOTE | 2021-03-18 17:08 | ED.GENADUL_ITS ---
Discharge Plan Disposition Patient Disposition: HOME Condition: Improving Discharge Details Clinical Impression: Generalized weakness, Dizziness, History of syncope Primary Care Provider: Selena Mon ED Provider: Kristen Bustos Home Meds and New Rx's Prescriptions: New sucralfate [Carafate] 1 gram tablet 1 gm PO QACHS Qty: 14 RF: 0 famotidine [Pepcid] 20 mg tablet 20 mg PO DAILY Qty: 14 RF: 0 Continued pregabalin 100 mg capsule 100 mg PO BID Qty: 180 RF: 1 ascorbate calcium (vitamin C) 500 mg tablet 500 mg PO DAILY RF: 0 multivitamin Tablet 1 tab PO DAILY RF: 0 diclofenac sodium 1 % gel 2 gm TP QID RF: 0 omeprazole 20 mg capsule,delayed release(DR/EC) 20 mg PO DAILY Qty: 90 RF: 3 lisinopril-hydrochlorothiazide 20-25 mg tablet 1 tab PO DAILY Qty: 90 RF: 3 venlafaxine 150 mg capsule,extended release 24hr 150 mg PO DAILY Qty: 90 RF: 3 atorvastatin 20 mg tablet 20 mg PO QPM Qty: 90 RF: 2 Brewers Yeast 1,000 mg PO BID RF: 0 calcium carbonate [Calcium 600] 600 mg calcium (1,500 mg) Tablet 1,200 mg PO BID RF: 0 biotin 5,000 mcg Tablet, Sublingual 5,000 mcg SUBLINGUAL DAILY RF: 0 Cbd Oil 600 mg PO BID RF: 0 Discharge Instructions Instructions: Weakness (ED), Dizziness (ED) Additional Instructions: Your lab work, EKG and imaging did not note any evidence of acute significant findings. Drink plenty of fluids and get plenty of rest. You can start taking plic-iqs-ehxesyz medication for heartburn such as Prilosec, Prevacid or Pepcid. Return the court recording monitor to the hospital as directed by respiratory therapy. Follow-up with your primary care doctor in 1 week for reevaluation. Call the orthopedics office on Saturday morning to schedule a follow-up appointment for reevaluation of your possible right ankle fracture. Use crutches to help with ambulation but you can weight-bear as tolerated if needed. Return immediately to the emergency department if you develop any worsening or new concerning symptoms. Referrals: Jeovany Urena MD [ [facility] STAFF PHYSICIAN] - Discharge Data Discharge Date/Time-TO BE ENTERED AT DEPARTURE: 03/18/21 20:35 Discharge Physician: Kristen Bustos Medical Decision Making 1715 -- 60-year-old female with a history of anxiety, depression, hypertension, GERD, IBS and fibromyalgia presents for generalized weakness and hypotension SBP 60s at home today. Also admits to syncopal episode after feeling weak a few days ago for which she saw her PCP and had outpatient lab work and a right ankle and tib/fib xray which noted small osseous density is seen medial to the lateral malleolus on the oblique view suspicious for small avulsed fracture. She is tender around the R lateral malleolus but there is no significant edema or deformity. Vitals within normal limits. Blood pressure 124/64. She has no focal deficits on exam. Differential diagnosis includes dehydration, arrhythmia, electrolyte abnormality, UTI, . Will place an IV, bolus IV fluids, screening labs, CT head, chest x-ray, UA and give fluids, obtain orthostatic vital signs and reassess. 1800 -- Labs and imaging reviewed. Times white blood cell count 8. Hemoglobin 13. D-dimer negative per age-adjusted cut off. Creatinine 1.6. GFR 32. Troponin negative. CT head and chest x-ray negative. 1930 -- Urinalysis negative. Orthostatics negative. Walking boot placed. Crutches given. Holter monitor placed. Patient also had complained of symptoms of heartburn with indigestion and acid taste in her throat for the past several months. She stopped taking her omeprazole because she states it did not work . She was given Carafate and a GI cocktail and Pepcid here with some relief. A prescription for Carafate and Pepcid was sent electronically to her pharmacy per her request. Patient advised to follow-up with her PCP for reevaluation and for further discussion regarding her syncope and generalized weakness and for consideration for referral for endoscopy if her symptoms of GERD and indigestion persist or worsen. She was advised to f/u with orthopedics as referred by her pcp for her possible ankle fracture. Usual and customary return precautions given prior to discharge. Medical Records Medical records reviewed: Yes I reviewed the patient's medical records. Imaging Data Radiologic Study: Radiologist's impression: XR Chest Exam date and time: 03/18/2021 17:52 Age: 60 years old Clinical indication: Other: Dizziness TECHNIQUE: Imaging protocol: XR of the chest. Views: 2 views. COMPARISON: CT CHEST PE ABD PELVIS W 06/04/2019 20:51 FINDINGS: Lungs: No consolidation. Pleural spaces: No pleural effusion. No pneumothorax. Heart/Mediastinum: No cardiomegaly. Mildly prominent main PA segment, can be seen in PA hypertension. Bones/joints: No acute fracture. IMPRESSION: No acute cardiopulmonary pathology. CT Head Without Contrast Exam date and time: 03/18/2021 17:52 Age: 60 years old Clinical indication: Dizziness TECHNIQUE: Imaging protocol: Computed tomography of the head without contrast. Radiation optimization: All CT scans at this facility use at least one of these dose optimization techniques: automated exposure control; mA and/or kV adjustment per patient size (includes targeted exams where dose is matched to clinical indication); or iterative reconstruction. Other technique: STROKE PROTOCOL was implemented. COMPARISON: SD US THYROID 03/03/2020 13:12 FINDINGS: Brain: No edema or hemorrhage. Cerebral ventricles: No ventriculomegaly. Paranasal sinuses: No acute sinusitis. Mastoid air cells: No mastoid effusion. Bones/joints: No acute fracture. Soft tissues: No suspicious lesions. IMPRESSION: No acute intracranial findings. Lab Data Lab results reviewed: Yes I reviewed the patient's lab results. Labs: Laboratory Tests Range/Units 03/18/21 03/18/21 03/18/21 17:27 17:27 17:27 WBC (4.4-10.8) 10^3/uL 8.21 RBC (3.93-5.22) 10^6/uL 5.31 H Hgb (11.2-15.7) g/dL 13.3 Hct (36.0-46.0) % 40.9 MCV (80-95) fL 77.0 L MCH (27.0-33.0) pg 25.0 L MCHC (32.0-36.0) % 32.5 RDW (11.7-14.6) % 13.7 Plt Count (130-400) 10^3/uL 294 MPV (8.0-11.0) fL 11.1 H Immature Gran % 0.9 Neutrophils % 67.7 Lymphocytes % 21.4 Monocytes % 8.0 Eosinophils % 1.3 Basophils % 0.7 Nucleated RBC % % 0 Absolute Neutrophils (1.2-6.7) 10^3/uL 5.55 Absolute Lymphocytes (1.2-3.4) 10^3/uL 1.76 Absolute Monocytes (0.1-0.8) 10^3/uL 0.66 Absolute Eosinophils (0.0-0.7) 10^3/uL 0.11 Absolute Basophils (0.0-0.2) 10^3/uL 0.06 D-Dimer (<500) ng/mlFEU 551 H Sodium (136-145) mmol/L 131 L Potassium (3.5-5.1) mmol/L 3.5 Chloride (98-107) mmol/L 95 L Carbon Dioxide (21.0-32.0) mmol/L 30.1 Anion Gap (3-11) mmol/L 5.9 BUN (7-18) mg/dL 44 H Creatinine (0.55-1.02) mg/dL 1.6 H Estimated GFR/1.73 m2 (mL/min/1.73m2) 32.66 Glucose (74-106) mg/dL 101 Calcium (8.5-10.1) mg/dL 8.6 Magnesium (1.8-2.4) mg/dL 2.0 Total Bilirubin (0.2-1.0) mg/dL 0.4 AST (15-37) U/L 15 ALT (14-59) U/L 35 Alkaline Phosphatase (46-116) U/L 92 Troponin I (<0.06) ng/mL < 0.05 Total Protein (6.4-8.2) g/dL 7.2 Albumin (3.4-5.0) g/dL 3.6 Urine Color (Yellow) Urine Clarity (Clear) Urine pH (5-8) Ur Specific [place] (1.005-1.025) Urine Protein (Negative) mg/dL Urine Ketones (Negative) mg/dL Urine Blood (Negative) Urine Nitrite (Negative) Urine Bilirubin (Negative) Urine Urobilinogen (Up TO 0.2) EU/dL Ur Leukocyte Esterase (Negative) Urine Glucose (Negative) mg/dL Range/Units 03/18/21 18:54 WBC (4.4-10.8) 10^3/uL RBC (3.93-5.22) 10^6/uL Hgb (11.2-15.7) g/dL Hct (36.0-46.0) % MCV (80-95) fL MCH (27.0-33.0) pg MCHC (32.0-36.0) % RDW (11.7-14.6) % Plt Count (130-400) 10^3/uL MPV (8.0-11.0) fL Immature Gran % Neutrophils % Lymphocytes % Monocytes % Eosinophils % Basophils % Nucleated RBC % % Absolute Neutrophils (1.2-6.7) 10^3/uL Absolute Lymphocytes (1.2-3.4) 10^3/uL Absolute Monocytes (0.1-0.8) 10^3/uL Absolute Eosinophils (0.0-0.7) 10^3/uL Absolute Basophils (0.0-0.2) 10^3/uL D-Dimer (<500) ng/mlFEU Sodium (136-145) mmol/L Potassium (3.5-5.1) mmol/L Chloride (98-107) mmol/L Carbon Dioxide (21.0-32.0) mmol/L Anion Gap (3-11) mmol/L BUN (7-18) mg/dL Creatinine (0.55-1.02) mg/dL Estimated GFR/1.73 m2 (mL/min/1.73m2) Glucose (74-106) mg/dL Calcium (8.5-10.1) mg/dL Magnesium (1.8-2.4) mg/dL Total Bilirubin (0.2-1.0) mg/dL AST (15-37) U/L ALT (14-59) U/L Alkaline Phosphatase (46-116) U/L Troponin I (<0.06) ng/mL Total Protein (6.4-8.2) g/dL Albumin (3.4-5.0) g/dL Urine Color (Yellow) Yellow Urine Clarity (Clear) Clear Urine pH (5-8) 6.5 Ur Specific [place] (1.005-1.025) 1.015 Urine Protein (Negative) mg/dL Negative Urine Ketones (Negative) mg/dL Negative Urine Blood (Negative) Negative Urine Nitrite (Negative) Negative Urine Bilirubin (Negative) Negative Urine Urobilinogen (Up TO 0.2) EU/dL 0.2 Ur Leukocyte Esterase (Negative) Negative Urine Glucose (Negative) mg/dL Negative ECG Data Attestation: I personally reviewed and interpreted this ECG (s) as follows: Interpretation: Rate of 76, sinus, no acute ST elevation or depression. MT 147. QTc 426. QRS 99. HPI General Mode of arrival: ambulatory . Date/Time Provider Initiated Documentation: 03/18/21 17:08 . Limitations to Documentation: no limitations . Information obtained by: patient . HPI Narrative: Patient is a 60-year-old female with a history of anxiety, depression, fibromyalgia, hypertension, irritable bowel syndrome presents to the ED with a complaint of generalized weakness and low blood pressure this morning. Patient states she awoke and felt generally weak and checked her blood pressure and it was a systolic of 60s. She states she felt generally weak throughout the day and had a similar low blood pressure prior to arrival. Patient states she had a syncopal episode at home a few days ago for which she saw her primary care doctor and was referred for outpatient lab work and a an x-ray of her right ankle due to twisting it with her syncope and collapse. Patient states she was walking in the kitchen to make a sandwich and she felt weak and passed out for about a minute. She states she twisted her ankle when she fell. She states she feels she does not drink enough water throughout the day and may be dehydrated. She states she was told that her ankle x-ray noted a potential fracture and was advised to follow-up with orthopedics but did not have a splint placed. Patient does admit to occasional headache and lightheadedness but denies any blurry vision, unilateral numbness or weakness, chest pain, shortness breath, abdominal pain, nausea, vomiting, diarrhea. She does admit to decreased urination today which did improve with Related Data Home Medications Medication Instructions Recorded Confirmed Brewers Yeast 1,000 mg PO BID 05/21/16 03/17/21 Cbd Oil 600 mg PO BID 06/02/19 03/17/21 biotin 5,000 mcg SUBLINGUAL DAILY 06/02/19 03/17/21 calcium carbonate [Calcium 600] 1,200 mg PO BID 06/02/19 03/17/21 diclofenac sodium 1 % topical gel 2 gm TP QID 09/01/19 03/17/21 omeprazole 20 mg capsule,delayed 20 mg PO DAILY #90 cap 09/01/20 03/17/21 release ascorbate calcium (vitamin C) 500 500 mg PO DAILY 09/20/20 03/17/21 mg tablet multivitamin 1 tab PO DAILY 09/20/20 03/17/21 lisinopril 20 1 tab PO DAILY #90 tab 01/10/21 03/17/21 mg-hydrochlorothiazide 25 mg tablet venlafaxine 150 mg 150 mg PO DAILY #90 cap 02/28/21 03/17/21 capsule,extended release 24 hr pregabalin 100 mg capsule 100 mg PO BID #180 cap 03/06/21 03/17/21 atorvastatin 20 mg tablet 20 mg PO QPM #90 tab 03/16/21 03/17/21 famotidine [Pepcid] 20 mg PO DAILY #14 tab 03/18/21 sucralfate [Carafate] 1 gm PO QACHS #14 tab 03/18/21 Previous Rx's Medication Instructions Recorded omeprazole 20 mg capsule,delayed 20 mg PO DAILY #90 cap 09/01/20 release lisinopril 20 1 tab PO DAILY #90 tab 01/10/21 mg-hydrochlorothiazide 25 mg tablet venlafaxine 150 mg 150 mg PO DAILY #90 cap 02/28/21 capsule,extended release 24 hr pregabalin 100 mg capsule 100 mg PO BID #180 cap 03/06/21 atorvastatin 20 mg tablet 20 mg PO QPM #90 tab 03/16/21 famotidine [Pepcid] 20 mg PO DAILY #14 tab 03/18/21 sucralfate [Carafate] 1 gm PO QACHS #14 tab 03/18/21 Allergies Allergy/AdvReac Type Severity Reaction Status Date / Time sulfamethoxazole Allergy Unknown Verified 03/18/21 17:08 [From Bactrim] trimethoprim [From Bactrim] Allergy Unknown Verified 03/18/21 17:08 vancomycin Allergy Unknown Red man Verified 03/18/21 17:08 syndrome General Stated Complaint: Dizzy/Sync MARY: 3 Review of Systems All systems reviewed & are unremarkable except as noted in HPI and below Constitutional Constitutional: Reports as per HPI, Denies chills, Denies fever(s) and Reports weakness Eyes Eyes: Denies blurry vision ENT Ears, Nose, Mouth, and Throat: Reports dizziness, Denies sore throat and Denies throat swelling Cardiovascular Cardiovascular: Denies chest pain and Denies dyspnea Respiratory Respiratory: Denies cough and Denies dyspnea Gastrointestinal Gastrointestinal: Denies abdominal pain, Denies diarrhea and Denies vomiting Genitourinary Genitourinary: Denies hematuria and Denies dysuria Musculoskeletal Musculoskeletal: Denies back pain and Denies numbness Integumentary/Breasts Skin/Breast: Denies lesions and Denies rash Neurologic Neurologic: Reports dizziness, Denies localized weakness, Denies numbness and Reports weakness Allergic/Immunologic Allergic/Immunologic: Denies throat swelling PFSH Medical History ALEXA positive Anxiety and depression Depression Essential hypertension Family history of breast cancer GERD (gastroesophageal reflux disease) Hypertension IBS (irritable bowel syndrome) Interstitial cystitis MRSA (methicillin resistant staph aureus) culture positive Thyroid nodule Surgical History Incision & Drainage, Abscess or Hematoma left groin Family History Sister Breast cancer Father Diabetes Hypertension Heart disease Mother Hypertension Social History Smoking/Tobacco Use Status: Current-Occasional Second Hand Exposure: Yes Smoking risk assessment performed?: Yes Alcohol Intake: never Drug use: Never Substance use type: does not use Caregiver/Support person: No Household members: other Details: lives alone Housing: house Number of Children: 0 Communication Needs: None Education Level: high school Details: 11th grade Do you need help understanding health information?: Rarely current occupation: UnEmployed Pets and animals: Yes Pets and animals: cat(s) Current gender identity: female What is your relationship status?: never How often do you talk on the phone with friends or family?: once per week How often do you get together with friends or relatives?: never Do you belong to any clubs or organized social groups?: no Panel score (0-1 are the most socially isolated patients): 0 What type of physical activity do you participate in: none Seatbelt use: always 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 Working smoke detector in home: Yes Fire extinguisher in home: Yes Carbon monox detector in home: Yes Firearms in home: Yes (not functioning) Do you feel safe at home: Yes Do you feel safe in your relationship?: Yes Exam Const General: cooperative and no acute distress HENMT Head: normal to inspection Face and sinus: normal facial exam Eyes General: appearance normal, both eyes and all related structures Pupils: PERRL EOM: EOM intact bilaterally Neck Neck: normal visual inspection and No submandibular swelling Lymphatic: no lymphadenopathy noted Chest Chest: normal inspection of the chest and no tenderness Resp Effort & Inspection: normal respiratory effort and able to speak in complete sentences Auscultation: clear to auscultation bilaterally Cardio Rate: regular rate Rhythm: regular rhythm GI Inspection: normal to inspection Palpation: soft, not firm, not rigid and nontender Auscultation: normal bowel sounds Back/Spine/Pelvis Thoracic/Lumbar Spine: thoracic and lumbar spine normal to inspection Skin General skin exam: no rashes or lesions noted Neuro General: patient alert, patient awake and patient oriented x3 Cranial Nerves: CN's II-XI intact bilaterally Cognition: normal cognition Speech: speech normal Motor: muscle tone normal throughout and strength 5/5 throughout Sensory Exam: no sensory deficits noted Extrem General: normal to inspection, full ROM, capillary refill normal, no calf tenderness bilaterally and no edema Psych Appearance: grossly normal Mental Status: mental status grossly normal Speech and Movement: speech and movement normal Affect: normal affect Course Vital Signs Vital signs: Vital Signs Temperature 98.1 F 03/18/21 17:05 Pulse 90 03/18/21 17:05 Respiratory Rate 18 03/18/21 17:05 Blood Pressure 124/64 03/18/21 17:05 Pulse Oximetry 99 03/18/21 17:05 Temperature 98.1 F 03/18/21 17:05 Temperature Source Temporal Artery Scan 03/18/21 17:05 Pulse 90 03/18/21 17:05 Respiratory Rate 18 03/18/21 17:05 Blood Pressure 124/64 03/18/21 17:05 Blood Pressure Position Sitting 03/18/21 17:05 Pulse Oximetry 99 03/18/21 17:05 Oxygen Delivery Method Room Air 03/18/21 17:05 Oxygen Flow Rate 0 03/18/21 17:05
[2021-03-18 17:34] LABS: Abs Immature Grans 0.07 10^3/uL (0.0-0.06); Absolute Basophil Count 0.06 10^3/uL (0.0-0.2); Absolute Eosinophil Count 0.11 10^3/uL (0.0-0.7); Absolute Lymphocyte Count 1.76 10^3/uL (1.2-3.4); Absolute Monocyte Count 0.66 10^3/uL (0.1-0.8); Absolute Neutrophil Count 5.55 10^3/uL (1.2-6.7); Basophils % 0.7; Eosinophils % 1.3; HCT 40.9 % (36.0-46.0); HGB 13.3 g/dL (11.2-15.7); Immature Grans % 0.9; Lymphocytes % 21.4; MCHC 32.5 % (32.0-36.0); MPV 11.1 fL (8.0-11.0); Neutrophils % 67.7; Nucleated RBC 0 %; Platelet Count 294 10^3/uL (130-400); RBC 5.31 10^6/uL (3.93-5.22); RDW 13.7 % (11.7-14.6); RDW-SD 38.4 fL; WBC 8.21 10^3/uL (4.4-10.8)
--- NOTE | 2021-03-18 17:45 | DI.RAD_ITS ---
Exam(s) XR CHEST 2V PA LATERAL EXAM: XR CHEST 2V PA LATERAL CLINICAL HISTORY: dizziness, r/o acute disease TECHNIQUE: 2D digital imaging was performed. COMPARISON: No exams were available for comparison FINDINGS: MEDIASTINUM: Normal. HEART: Normal. PULMONARY VASCULATURE: Normal. LUNGS: Clear. PLEURAL SPACE: No pleural effusion or pneumothorax. BONE:Unremarkable for age. IMPRESSION: No acute abnormality. DATA REPOSITORY: RADIATION DOSE DELIVERED:
[2021-03-18 17:50] LABS: ALT 35 U/L (14-59); AST 15 U/L (15-37); Albumin 3.6 g/dL (3.4-5.0); Alkaline Phosphatase 92 U/L (46-116); Anion Gap 5.9 mmol/L (3-11); BUN 44 mg/dL (7-18); Bilirubin, Total 0.4 mg/dL (0.2-1.0); CO2 30.1 mmol/L (21.0-32.0); CREATININE 1.6 mg/dL (0.55-1.02); Calcium 8.6 mg/dL (8.5-10.1); Chloride 95 mmol/L (98-107); Estimated GFR 32.66 (mL/min/1.73m2); Glucose 101 mg/dL (74-106); Potassium 3.5 mmol/L (3.5-5.1); Sodium 131 mmol/L (136-145); Total Protein 7.2 g/dL (6.4-8.2); Troponin I < 0.05 ng/mL (<0.06)
--- NOTE | 2021-03-18 18:19 | DI.CT_ITS ---
Exam(s) CT HEAD WO EXAM: CT HEAD WO CLINICAL HISTORY: dizziness, r/o acute disease. TECHNIQUE: Imaging Protocol: Axial computed tomography images with coronal and sagittal reformatted images were created and reviewed COMPARISON: No exams were available for comparison FINDINGS: Ventricles and Extra axial spaces: Normal in size and morphology for the patient's age. Hemorrhage: None. Cerebral parenchyma: Normal. Midline shift: None. Brainstem/Cerebellum: Normal. Calvarium: Normal. Visualized Paranasal sinuses/Mastoids: Clear. Soft Tissues: Unremarkable. IMPRESSION: No acute intracranial process. RADIATION DOSE DELIVERED: 692.23mGy.cm Total DLP DATA REPOSITORY: All CT scans at this facility are submitted to the National Radiology Data Registry (NRDR) Dose Index Registry (DIR) with the [employer] ([employer]). RADIATION OPTIMIZATION: All CT scans at this facility use at least one of these dose optimization te chniques: automated exposure control; mA and/or kV adjustment per patient size (includes targeted exa ms where dose is matched to clinical indication); or iterative reconstruction.
[2021-03-18 18:23] LABS: D-Dimer 551 ng/mlFEU (<500)
--- NOTE | 2021-03-18 18:27 | DI.VRAD_ITS ---
PROCEDURE INFORMATION: Exam: XR Chest Exam date and time: 03/18/2021 17:52 Age: 60 years old Clinical indication: Other: Dizziness TECHNIQUE: Imaging protocol: XR of the chest. Views: 2 views. COMPARISON: CT CHEST PE ABD PELVIS W 06/04/2019 20:51 FINDINGS: Lungs: No consolidation. Pleural spaces: No pleural effusion. No pneumothorax. Heart/Mediastinum: No cardiomegaly. Mildly prominent main PA segment, can be seen in PA hypertension. Bones/joints: No acute fracture. IMPRESSION: No acute cardiopulmonary pathology. Dictated and Authenticated by: Sandra Braxton MD. Ordering:RYAN Peterson MD
--- NOTE | 2021-03-18 18:27 | DI.VRAD_ITS ---
PROCEDURE INFORMATION: Exam: CT Head Without Contrast Exam date and time: 03/18/2021 17:52 Age: 60 years old Clinical indication: Dizziness TECHNIQUE: Imaging protocol: Computed tomography of the head without contrast. Radiation optimization: All CT scans at this facility use at least one of these dose optimization techniques: automated exposure control; mA and/or kV adjustment per patient size (includes targeted exams where dose is matched to clinical indication); or iterative reconstruction. Other technique: STROKE PROTOCOL was implemented. COMPARISON: SD US THYROID 03/03/2020 13:12 FINDINGS: Brain: No edema or hemorrhage. Cerebral ventricles: No ventriculomegaly. Paranasal sinuses: No acute sinusitis. Mastoid air cells: No mastoid effusion. Bones/joints: No acute fracture. Soft tissues: No suspicious lesions. IMPRESSION: No acute intracranial findings. ASSESSMENT: ASPECTS ([place] Stroke Program Early CT Score) is 10 Dictated and Authenticated by: Sandra Braxton MD. Ordering:RYAN Peterson MD
[2021-03-18] MEDS: FAMOTIDINE 20 MG/50 ML BAG 200 MG IVPB (18:58)
[2021-03-18] MEDS: Sucralfate 1 GM TAB PO (18:58)
[2021-03-18] MEDS: Normal Saline 1,000 ML 1000 ML IV (18:58)
[2021-03-18 19:24] LABS: Bilirubin Negative (Negative); Blood Negative (Negative); Clarity Clear (Clear); Glucose Negative (Negative); Ketones Negative (Negative); Leukocyte Esterase Negative (Negative); Nitrite Negative (Negative); Specific Gravity 1.015 (1.005-1.025); Urobilinogen 0.2 EU/dL (Up TO 0.2); pH 6.5 (5-8)
== END 2021-03-18 20:35 | disposition home or self-care (01) ==
PROVIDERS: Emergency Provider Physician Assistant; PCP Nurse Practitioner
DX: R53.1 Weakness (principal); R42 Dizziness and giddiness; R55 Syncope and collapse; I95.9 Hypotension, unspecified; S99.911A Unspecified injury of right ankle, initial encounter; X50.9XXA Other and unspecified overexertion or strenuous movements or postures, initial encounter
CPT/HCPCS: 36415; 80053; 93005; 96361; 96365; 99285; 70450; 71046; 81003; 83735; 84484; 85025; 85379; 93010

== ENCOUNTER 2021-03-18 19:33 | Outpatient (RCR) | payer MEDICAID, SELFPAY ==
--- NOTE | 2021-03-18 19:30 | HOLTER_ITS ---
APPROVED REPORT Conclusion This was a 48-hour Holter monitor ordered for dizziness and syncope Predominant rhythm is sinus with an average heart rate of 70. Minimum was 52, maximum 133 There were occasional ventricular ectopic beats, 2 couplets and no ventricular tachycardia There were rare atrial premature beats. There were several self-limited atrial runs, the longest of w hich was 5 beats in duration There was no atrial fibrillation, no high-grade AV block, no pauses greater than 3 seconds Patient symptoms of rapid heartbeat corresponded to sinus rhythm at 101 bpm
== END 2021-03-26 23:59 | disposition home or self-care (01) ==
LOC: RT 19:33
PROVIDERS: PCP Nurse Practitioner; Visit Provider Nurse Practitioner
DX: R55 Syncope and collapse (principal)
CPT/HCPCS: 93225; 93226

== ENCOUNTER 2021-06-01 14:24 | Outpatient (REF) | payer MEDICAID, SELFPAY ==
[2021-06-03 10:18] LABS: COVID-19 RT-PCR UVMMC Result Negative (Negative)
== END 2021-06-01 14:25 | disposition home or self-care (01) ==
LOC: LBN 14:24
PROVIDERS: PCP Nurse Practitioner; Visit Provider Nurse Practitioner
DX: R11.0 Nausea (principal); R19.5 Other fecal abnormalities; Z20.822 Contact with and (suspected) exposure to COVID-19
CPT/HCPCS: U0003

== ENCOUNTER 2021-06-02 14:54 | Outpatient (REF) | payer MEDICAID, SELFPAY ==
[2021-06-04 11:20] LABS: Campylobacter PCR Negative (Negative); Salmonella PCR Negative (Negative); Shiga Toxin PCR Negative (Negative); Shigella/Enteroinvasive Ecoli Negative (Negative)
== END 2021-06-02 14:55 | disposition home or self-care (01) ==
LOC: LBN 14:54
PROVIDERS: PCP Nurse Practitioner; Visit Provider Nurse Practitioner
DX: R10.9 Unspecified abdominal pain (principal); R19.5 Other fecal abnormalities
CPT/HCPCS: 87493; 87505; 87177

== ENCOUNTER 2021-06-29 12:26 | Emergency (ER) | payer MEDICAID, SELFPAY ==
--- NOTE | 2021-06-29 12:30 | DI.CT_ITS ---
Exam(s) CT HEAD WO EXAM: CT HEAD WO CLINICAL HISTORY: Fall. TECHNIQUE: Imaging Protocol: Axial computed tomography images with coronal and sagittal reformatted images were created and reviewed COMPARISON: CT CT HEAD WO from 03/18/2021 FINDINGS: The ventricular system is normal in appearance. No evidence of acute intracranial hemorrhage, mass effect, or midline shift. The orbital structures are unremarkable. The temporal bone structures appear intact. Calvarium: Normal. Visualized Paranasal sinuses/Mastoids: Clear. IMPRESSION: Normal cranial CT. RADIATION DOSE DELIVERED: 738.71mGy.cm Total DLP 738.71mGy.cm Total DLP CTDIvol DATA REPOSITORY: All CT scans at this facility are submitted to the National Radiology Data Registry (NRDR) Dose Index Registry (DIR) with the [employer] (ACR). RADIATION OPTIMIZATION: All CT scans at this facility use at least one of these dose optimization te chniques: automated exposure control; mA and/or kV adjustment per patient size (includes targeted exa ms where dose is matched to clinical indication); or iterative reconstruction.
[2021-06-29 12:31] VITALS: BP 160/63; PULSE 91; RESP 18; TEMP 36.6; O2SAT 98
--- NOTE | 2021-06-29 12:44 | W.ED.GENAD ---
Discharge Plan Disposition Patient Disposition: HOME Condition: Stable Discharge Details Clinical Impression: Closed head injury without loss of consciousness Primary Care Provider: Selena Mon ED Provider: Drea Olivares Home Meds and New Rx's Prescriptions: Continued pregabalin 100 mg capsule 100 mg PO BID Qty: 180 RF: 1 ascorbate calcium (vitamin C) 500 mg tablet 500 mg PO DAILY RF: 0 multivitamin Tablet 1 tab PO DAILY RF: 0 bupropion HCl [Wellbutrin XL] 150 mg tablet extended release 24 hr 150 mg PO QAM Qty: 90 RF: 3 amitriptyline 10 mg tablet 20 mg PO QHS Qty: 60 RF: 3 diclofenac sodium 1 % gel 2 gm TP QID RF: 0 omeprazole 20 mg capsule,delayed release(DR/EC) 20 mg PO DAILY Qty: 90 RF: 3 lisinopril-hydrochlorothiazide 20-25 mg tablet 1 tab PO DAILY Qty: 90 RF: 3 atorvastatin 20 mg tablet 20 mg PO QPM Qty: 90 RF: 2 Brewers Yeast 1,000 mg PO BID RF: 0 calcium carbonate [Calcium 600] 600 mg calcium (1,500 mg) Tablet 1,200 mg PO BID RF: 0 biotin 5,000 mcg Tablet, Sublingual 5,000 mcg SUBLINGUAL DAILY RF: 0 Cbd Oil 600 mg PO BID RF: 0 Discharge Instructions Instructions: Head Injury (ED) Additional Instructions: Head CT is within normal limits at this time. There is no evidence of internal bleeding or broken bones at this time. Your neuro exam is also largely within normal limits. Follow up with primary care provider in 3-5 days. Return to ED sooner if any worsening headache not relieved by Tylenol or ibuprofen, vomiting, numbness or tingling, confusion or concerns. Increase oral fluids. Please take Tylenol or Ibuprofen with food every 4-6 hours as needed for pain and swelling. Referrals: Selena Mon, ELECT[employer] RESEARCH ENGINEER [Primary Care Provider] - 5 days Medical Decision Making : 61-year-old female presents to the ER with chief complaint of headache status post mechanical slip and fall on the ice at approximately 9 AM this morning. Patient reports she was going out to feed her birds and her feet came out from under her. She reports landing on the back of her head. No loss of consciousness. She has a small hematoma noted to her right occipital scalp. No midline C-spine tenderness to palpation. Neuro exam is unremarkable upon initial examination. She denies any numbness tingling. No nausea vomiting no visual disturbances. She is requesting a head CT at this time. She does have a past medical history of chronic kidney disease stage III, depression, hypertension. CT head without contrast ordered. Tylenol 650 mg p.o. ordered. 1310: Spoke with Dr. khoury with radiology, Head CT is negative. Will discharge patient with Closed head injury instructions. This text was generated using [employer] system, please disregard any oddities of phrase or misspellings. HPI General Mode of arrival: ambulatory. Date/Time Provider Initiated Documentation: 06/29/21 12:37. Limitations to Documentation: no limitations. Information obtained by: patient and RN notes reviewed. HPI Narrative: 61-year-old female presents to the ER with chief complaint of headache status post mechanical slip and fall on the ice at approximately 9 AM this morning. Patient reports she was going out to feed her birds and her feet came out from under her. She reports landing on the back of her head. No loss of consciousness. She has a small hematoma noted to her right occipital scalp. No midline C-spine tenderness to palpation. Neuro exam is unremarkable upon initial examination. She denies any numbness tingling. No nausea vomiting no visual disturbances. She is requesting a head CT at this time. She does have a past medical history of chronic kidney disease stage III, depression, hypertension. Related Data Home Medications Medication Instructions Recorded Confirmed Brewers Yeast 1,000 mg PO BID 05/21/16 06/01/21 Cbd Oil 600 mg PO BID 06/02/19 06/01/21 biotin 5,000 mcg SUBLINGUAL DAILY 06/02/19 06/01/21 calcium carbonate [Calcium 600] 1,200 mg PO BID 06/02/19 06/01/21 diclofenac sodium 1 % topical gel 2 gm TP QID 09/01/19 06/01/21 omeprazole 20 mg capsule,delayed 20 mg PO DAILY #90 cap 09/01/20 06/01/21 release ascorbate calcium (vitamin C) 500 500 mg PO DAILY 09/20/20 06/01/21 mg tablet multivitamin 1 tab PO DAILY 09/20/20 06/01/21 lisinopril 20 1 tab PO DAILY #90 tab 01/10/21 06/01/21 mg-hydrochlorothiazide 25 mg tablet pregabalin 100 mg capsule 100 mg PO BID #180 cap 03/06/21 06/01/21 atorvastatin 20 mg tablet 20 mg PO QPM #90 tab 03/16/21 06/01/21 bupropion HCl 150 mg 24 hr tablet, 150 mg PO QAM #90 tab 03/23/21 06/01/21 extended release amitriptyline 10 mg tablet 20 mg PO QHS #60 tab 06/01/21 06/01/21 Previous Rx's Medication Instructions Recorded omeprazole 20 mg capsule,delayed 20 mg PO DAILY #90 cap 09/01/20 release lisinopril 20 1 tab PO DAILY #90 tab 01/10/21 mg-hydrochlorothiazide 25 mg tablet pregabalin 100 mg capsule 100 mg PO BID #180 cap 03/06/21 atorvastatin 20 mg tablet 20 mg PO QPM #90 tab 03/16/21 bupropion HCl 150 mg 24 hr tablet, 150 mg PO QAM #90 tab 03/23/21 extended release amitriptyline 10 mg tablet 20 mg PO QHS #60 tab 06/01/21 Allergies Allergy/AdvReac Type Severity Reaction Status Date / Time sulfamethoxazole Allergy Unknown Verified 06/01/21 11:28 [From Bactrim] trimethoprim [From Bactrim] Allergy Unknown Verified 06/01/21 11:28 vancomycin Allergy Unknown Red man Verified 06/01/21 11:28 syndrome General Stated Complaint: HeadInjury MARY: 4 Review of Systems All systems reviewed & are unremarkable except as noted in HPI and below Constitutional Constitutional: Reports headache(s) ENT Ears, Nose, Mouth, and Throat: Reports headache(s) Neurologic Neurologic: Reports headache(s) PFSH All Active Problems (Updated 06/29/21 @ 13:13 by Drea Olivares) Closed head injury without loss of consciousness (Acute) Sprain of right ankle (Acute 03/17/21) Generalized weakness (Acute) Dizziness (Acute) History of syncope (Acute) Hyponatremia (Acute) Fall (Acute) Syncope and collapse (Acute) Left elbow pain (Acute) Hair thinning (Acute) Fatigue (Acute) Chronic kidney disease, stage 3 (Acute) 11/21/20- [facility] [place],Elana Oviedo MD Reflux nephropathy (Acute) 11/21/20- Elana Oviedo MD;[facility] [place] Sinusitis (Acute) HPV test positive (Acute) Elevated TSH (Acute) Hyperlipidemia (Acute) Concentration deficit (Acute) Family history of breast cancer (Acute) Routine general medical examination at a health care facility (Acute) Hypertension (Chronic) Fibromyalgia (Acute) 09/14/20 [facility] [place]ology Anxiety and depression (Chronic) Reflux esophagitis (Acute) ALEXA positive (Acute) Interstitial cystitis (Acute) IBS (irritable bowel syndrome) (Chronic) Thyroid nodule (Acute) Magnesium deficiency (Acute) Decreased GFR (Acute) Decreased exercise tolerance (Acute) ORTIZ (dyspnea on exertion) (Acute) Fatigue (Acute) Post-nasal drip (Acute) Crepitus of right temporomandibular joint on opening of jaw (Acute) Anxiety (Chronic) Abnormal auditory perception (Acute) Tinnitus, bilateral (Acute) Impacted cerumen of both ears (Acute) Thigh abscess (Acute) Medical History Depression Essential hypertension MRSA (methicillin resistant staph aureus) culture positive Surgical History Incision & Drainage, Abscess or Hematoma left groin Family History Sister Breast cancer Father Diabetes Hypertension Heart disease Mother Hypertension Social History Smoking/Tobacco Use Status: Current-Occasional Second Hand Exposure: Yes Smoking risk assessment performed?: Yes Alcohol Intake: never Drug use: Never Substance use type: does not use Caregiver/Support person: No Household members: other Details: lives alone Housing: house Number of Children: 0 Communication Needs: None Education Level: high school Details: 11th grade Do you need help understanding health information?: Rarely current occupation: UnEmployed Pets and animals: Yes Pets and animals: cat(s) Current gender identity: female What is your relationship status?: never How often do you talk on the phone with friends or family?: once per week How often do you get together with friends or relatives?: never Do you belong to any clubs or organized social groups?: no Panel score (0-1 are the most socially isolated patients): 0 What type of physical activity do you participate in: none Seatbelt use: always Drive intox or ride w/intox hire car driver: No Working smoke detector in home: Yes Fire extinguisher in home: Yes Carbon monox detector in home: Yes Firearms in home: Yes (not functioning) Do you feel safe at home: Yes Do you feel safe in your relationship?: Yes Exam Narrative Exam Narrative: General: Well Developed, Awake and Alert, conversant. Skin: Warm and Dry HEENT: Head: No palpable deformities, Normocephalic. Does have a hematoma noted to the right occipital scalp. Eyes: Pupils PERRLA, EOM's intact. No periorbital eccymosis or step off Ears: Canal patent. Tympanic membranes are clear . No monte's sign, no hemptympanum. Nose/Face: Atraumatic. Facial bones nontender to palpation and stable with manipulation. Mouth/Throat: No intraoral trauma. Teeth and mandible are intact. Neck: No midline tenderness, no step off, no deformity to palpation of C-spine. Trachea midline. Chest: No surface trauma. Nontender without crepitus or deformity. Lungs clear to ausculatation bilaterally. Heart: RRR, no rubs, murmurs or gallop. Abdomen: No abrasions, ecchymosis, or surface trauma. Nondistended. Nontender to palpation no guarding, rebound, or rigidity. Pelvis: Nontender to palpation and stable to compression. Femoral pulses strong and equal Extremities: no surface trauma. Sensation intact. Peripheral pulses intact and equal. Neuro: ANO x4, GCS 15, cranial nerves II through XII intact. Motor and sensory exam nonfocal. Reflexes are symmetric. Course Vital Signs Vital signs: Vital Signs Temperature 36.6 C 06/29/21 12:31 Pulse 91 H 06/29/21 12:31 Respiratory Rate 18 06/29/21 12:31 Blood Pressure 160/63 H 06/29/21 12:31 Pulse Oximetry 98 06/29/21 12:31 Temperature 36.6 C 06/29/21 12:31 Temperature Source Temporal Artery Scan 06/29/21 12:31 Pulse 91 H 06/29/21 12:31 Respiratory Rate 18 06/29/21 12:31 Respiratory Effort 06/29/21 12:34 Respiratory Depth Normal 06/29/21 12:34 Respiratory Pattern Normal 06/29/21 12:34 Blood Pressure 160/63 H 06/29/21 12:31 Blood Pressure Position Sitting 06/29/21 12:31 Pulse Oximetry 98 06/29/21 12:31 Oxygen Delivery Method Room Air 06/29/21 12:31 Oxygen Flow Rate 0 06/29/21 12:31 Pain Level 7 06/29/21 12:31
[2021-06-29] MEDS: Acetaminophen 325 MG TAB 650 MG PO (13:07)
[2021-06-29 13:34] VITALS: BP 118/65; PULSE 82; TEMP 36.5; O2SAT 95
== END 2021-06-29 14:07 | disposition home or self-care (01) ==
PROVIDERS: Emergency Provider Registered Nurse Emergency; PCP Nurse Practitioner
DX: S09.8XXA Other specified injuries of head, initial encounter (principal); W00.0XXA Fall on same level due to ice and snow, initial encounter
CPT/HCPCS: 99284; 70450; 99283

== ENCOUNTER 2021-10-11 16:33 | Outpatient (REF) | payer MEDICAID, SELFPAY | END 2021-10-11 16:34 | disposition home or self-care (01) | LOC: LBN 16:33 | PROVIDERS: PCP Nurse Practitioner; Visit Provider Nurse Practitioner | DX: R39.89 Other symptoms and signs involving the genitourinary system (principal) | CPT/HCPCS: 87086 ==

== ENCOUNTER → 2021-11-23 12:47 | Outpatient (CLI) | payer MEDICAID, SELFPAY ==
--- NOTE | 2021-11-23 | DI.US_ITS ---
Exam(s) US ABDOMEN LIMITED EXAM: US ABDOMEN LIMITED CLINICAL HISTORY: RUQ ABD PAIN AND NAUSEA AFTER EATING, R10.11, ? BILIARY INVOLVEMENT TECHNIQUE: Ultrasound abdomen performed using standard protocol. COMPARISON: CT CT CHEST PE ABD PELVIS W from 06/04/2019 FINDINGS: PANCREAS: Normal where visualized. LIVER: Normal. Hepatopedal flow in the Portal Vein. The liver measures in 13.4 cm length. GALLBLADDER:There is hypoechoic shadowing in the gallbladder fossa. The gallbladder wall cannot be e valuated. No pericholecystic fluid identified. There is no sonographic Hewitt sign. BILIARY SYSTEM: Common bile duct measures 1.7 cm. No intrahepatic biliary ductal dilation. RIGHT KIDNEY: Kidney is normal in size. No evidence of renal calculi. No evidence of hydronephrosis. There is a stable 2 cm cyst in the inferior pole of the right kidney. ASCITES: None seen. IMPRESSION: 1. Hypoechoic shadowing in the gallbladder fossa. This can be seen with multiple gallstones within a contracted gallbladder. There was a negative sonographic Hewitt sign. 2. Extrahepatic biliary ductal dilatation. Choledocholithiasis cannot be excluded. 3. MRI/MRCP should be considered for further evaluation. DATA REPOSITORY:
== END ==
PROVIDERS: PCP Nurse Practitioner; Visit Provider Physician Assistant Medical
DX: K80.70 Calculus of gallbladder and bile duct without cholecystitis without obstruction (principal); K83.8 Other specified diseases of biliary tract
CPT/HCPCS: 76705

== ENCOUNTER 2021-11-23 13:00 | Outpatient (REF) | payer MEDICAID, SELFPAY ==
[2021-11-23 15:26] LABS: Abs Immature Grans 0.01 10^3/uL (0.0-0.06); Absolute Basophil Count 0.08 10^3/uL (0.0-0.2); Absolute Eosinophil Count 0.06 10^3/uL (0.0-0.7); Absolute Lymphocyte Count 1.34 10^3/uL (1.2-3.4); Absolute Monocyte Count 0.55 10^3/uL (0.1-0.8); Absolute Neutrophil Count 4.64 10^3/uL (1.2-6.7); Basophils % 1.2; Eosinophils % 0.9; HCT 42.5 % (36.0-46.0); HGB 14.1 g/dL (11.2-15.7); Immature Grans % 0.1; Lymphocytes % 20.1; MCH 25.4 pg (27.0-33.0); MCHC 33.2 % (32.0-36.0); MCV 77 fL (80-95); MPV 11.6 fL (8.0-11.0); Monocytes % 8.2; Neutrophils % 69.5; Platelet Count 320 10^3/uL (130-400); RBC 5.55 10^6/uL (3.93-5.22); RDW 14.1 % (11.7-14.6); RDW-SD 38.9 fL; WBC 6.68 10^3/uL (4.4-10.8)
[2021-11-23 15:48] LABS: ALT 49 U/L (14-59); AST 27 U/L (15-37); Albumin 4.3 g/dL (3.4-5.0); Alkaline Phosphatase 90 U/L (46-116); Anion Gap 9.8 mmol/L (3-11); BUN 31 mg/dL (7-18); Bilirubin, Total 0.6 mg/dL (0.2-1.0); CO2 26.2 mmol/L (21.0-32.0); CREATININE 1.5 mg/dL (0.55-1.02); Calcium 9.7 mg/dL (8.5-10.1); Chloride 97 mmol/L (98-107); Estimated GFR 35.07 (mL/min/1.73m2); Glucose 110 mg/dL (74-106); Lipase 168 U/L (73-393); Potassium 4.5 mmol/L (3.5-5.1); Sodium 133 mmol/L (136-145); Total Protein 7.8 g/dL (6.4-8.2)
== END 2021-11-23 13:01 | disposition home or self-care (01) ==
LOC: LBN 13:00
PROVIDERS: PCP Nurse Practitioner; Visit Provider Physician Assistant Medical
DX: R10.11 Right upper quadrant pain (principal)
CPT/HCPCS: 80053; 83690; 85025

== ENCOUNTER → 2021-12-15 00:46 | Outpatient (CLI) | payer MEDICAID, SELFPAY ==
--- NOTE | 2021-12-15 11:10 | DI.MRI_ITS ---
Exam(s) MR BRAIN WO EXAM: MR BRAIN WO CLINICAL HISTORY: memory changes,MEMORY IMPAIRMENT, R41.3 TECHNIQUE: Multiplanar multisequence MRI of the brain was performed. COMPARISON: CT CT HEAD WO from 06/29/2021 FINDINGS: No intracranial hemorrhage, mass or infarct is seen. There is no significant atrophy. The ventricles are normal in size. There are a few tiny scattered high signal lesions in the white matter. The vascular flow voids appear intact. The orbits and pituitary are unremarkable as visualized. The sinuses and mastoid air cells are clear the exception of some mucous retention at the floor of th e left maxillary sinus.. IMPRESSION: Minimal white matter lesions likely reflecting small vessel disease. DATA REPOSITORY:
== END ==
PROVIDERS: PCP Nurse Practitioner; Visit Provider Nurse Practitioner Adult Health
DX: R41.3 Other amnesia (principal); R90.82 White matter disease, unspecified
CPT/HCPCS: 70551

== ENCOUNTER → 2021-12-15 00:46 | Outpatient (CLI) | payer MEDICAID, SELFPAY ==
--- NOTE | 2021-12-15 | DI.MRI_ITS ---
Exam(s) MR ABDOMEN WO EXAM: MR ABDOMEN WO CLINICAL HISTORY: GALLSTONES,K80.20,F/U ABNL US,? CHOLEDOCHOLITHIASIS TECHNIQUE: Multiplanar multisequence MRI of the Abdomen was performed. MRCP sequences also perform ed COMPARISON: CT CT CHEST PE ABD PELVIS W from 06/04/2019 US US ABDOMEN LIMITED from 11/23/2021 FINDINGS: Liver: Unremarkable. Pancreas: Unremarkable. Gallbladder and Bile Ducts: Unremarkable. Common bile duct now measures 5 millimeters. No gallstones . Adrenals: Unremarkable. Kidneys: Cysts lower pole right kidney. Small left kidney with multifocal scarring. No hydronephros is. Spleen: Unremarkable. Aorta: Unremarkable. Soft Tissues: Unremarkable. Bone: Unremarkable. Lymph Nodes: Unremarkable. IMPRESSION: Gallbladder and biliary tree now have a normal appearance. The findings are similar to the prior CT of 2019. DATA REPOSITORY:
== END ==
PROVIDERS: PCP Nurse Practitioner; Visit Provider Physician Assistant Medical
DX: K80.20 Calculus of gallbladder without cholecystitis without obstruction (principal)
CPT/HCPCS: 74181

== ENCOUNTER → 2022-02-02 00:35 | Outpatient (CLI) | payer MEDICAID, SELFPAY ==
--- NOTE | 2022-02-02 06:45 | DI.NM_ITS ---
Exam(s) NM HEPATOBILIARY CCK GRP EXAM: NM HEPATOBILIARY CCK GRP CLINICAL HISTORY: ruq abdominal pain/diarrhea,MRSA,R10.11. TECHNIQUE: Injected dose: 5 mCi Tc-99 mebrofenin Initial dynamic images: According to protocol. Post-Gallbladder filling: The patient received 1.1 mcg CCK infusion according to protocol. Addition images: According to protocol. COMPARISON: US US ABDOMEN LIMITED from 11/23/2021 MR MR ABDOMEN WO from 12/15/2021 FINDINGS: Normal hepatic transit time. Prompt excretion into the small bowel. Prompt excretion into the gallbladder. The gallbladder ejection fraction is 81 percent. IMPRESSION: 1. No evidence of acute cholecystitis or acalculous disease. SNM guidelines: Gallbladder visualization should be present by 3 hours. Delayed [id number] montague sit beyond 60 min raises the suspicion for partial common bile duct (CBD) obstruction. Gallbladder ejection fraction <35% has a good correlation with acalculous disease (i.e., chronic acal culous cholecystitis, cystic duct syndrome, sphincter of Oddi disease).
[2022-02-02] MEDS: Sincalide 5 MCG VIAL 1.1 MCG IJ (10:50)
== END ==
PROVIDERS: PCP Nurse Practitioner; Visit Provider Surgery
DX: E78.5 Hyperlipidemia, unspecified (principal); F32.9 Major depressive disorder, single episode, unspecified; F41.9 Anxiety disorder, unspecified; K58.9 Irritable bowel syndrome, unspecified; M79.7 Fibromyalgia; N18.30 Chronic kidney disease, stage 3 unspecified; N30.10 Interstitial cystitis (chronic) without hematuria; R10.11 Right upper quadrant pain
CPT/HCPCS: 78227

== ENCOUNTER 2022-02-13 01:41 | Outpatient (CLI) | payer MEDICAID, SELFPAY ==
[2022-02-13 14:02] LABS: ALT 46 U/L (14-59); AST 27 U/L (15-37); Albumin 3.9 g/dL (3.4-5.0); Alkaline Phosphatase 82 U/L (46-116); Anion Gap 9.6 mmol/L (3-11); BUN 26 mg/dL (7-18); Bilirubin, Total 0.6 mg/dL (0.2-1.0); CO2 27.4 mmol/L (21.0-32.0); CREATININE 1.4 mg/dL (0.55-1.02); Calcium 9.7 mg/dL (8.5-10.1); Chloride 97 mmol/L (98-107); Estimated GFR 42.27 (mL/min/1.73m2); Glucose 103 mg/dL (74-106); Potassium 3.8 mmol/L (3.5-5.1); Sodium 134 mmol/L (136-145)
[2022-02-13 14:04] LABS: Calculated LDL 88 mg/dL (<100); Cholesterol 173 mg/dL (<200); HDL Cholesterol 52 mg/dL (40-60); Triglyceride 166 mg/dL (<150)
== END 2022-02-13 01:42 | disposition home or self-care (01) ==
LOC: LBO 01:41
PROVIDERS: Nurse Practitioner Adult Health; PCP Nurse Practitioner; Visit Provider Nurse Practitioner
DX: E78.5 Hyperlipidemia, unspecified
CPT/HCPCS: 36415; 80048; 80053; 80061

== ENCOUNTER 2022-02-15 16:12 | Outpatient (REF) | payer MEDICAID, SELFPAY ==
--- NOTE | 2022-02-15 15:30 | PAPFT_PTH ---
PATIENT: Birgit Isaac LOC: [facility] U#:[id number] AGE/SX: 61/F ROOM: RE02/15/[address]: Selena Mon APRN : 1960 BED: DIS: 02/15/2022 SPEC #: [id number] RECD: 02/15/22 18:43 STATUS: DEREK REMyrna #: [id number] ELIS: 02/15/22 15:[address]: Selena Mon DEPT: [facility] Cytology RECD BY: Evie Lim Tissues: 1 - CX/ENDOCX FOR PAP SMEARS Procedures: PAP THIN PREP/UVM Screening HPV DNA PROBE Comments: [id number]
== END 2022-02-15 16:13 | disposition home or self-care (01) ==
LOC: LBN 16:12
PROVIDERS: PCP Nurse Practitioner; Visit Provider Nurse Practitioner
DX: Z12.4 Encounter for screening for malignant neoplasm of cervix (principal); Z11.51 Encounter for screening for human papillomavirus (HPV); R31.9 Hematuria, unspecified; R87.810 Cervical high risk human papillomavirus (HPV) DNA test positive
CPT/HCPCS: 88142; 87624

== ENCOUNTER → 2022-03-07 01:11 | Outpatient (CLI) | payer MEDICAID, SELFPAY ==
--- NOTE | 2022-03-07 12:40 | DI.MAMMO_ITS ---
Exam(s) MAMMO SCREENING EXAM: MAMMO SCREENING CLINICAL HISTORY: screening,Z12.39,FAMILY H/O BREAST CA,Z80.3 TECHNIQUE: Mammograms were interpreted according to the usual protocol including computer analysis w [employer] CAD system, tomosynthesis and C-view imaging. COMPARISON: FINDINGS: The breasts are of moderate density with fairly symmetrical distribution of fibroglandular tissue. C urrent examination is compared with prior examinations including November 2020. There is a new 11 millimeter in diameter fairly well-circumscribed mass of the retroareolar portion o f the right breast. Spot compression views and breast ultrasound requested for further evaluation. No other significant change identified in either breast. No suspicious clumped microcalcification se en. IMPRESSION: Additional mammographic views of the right breast and right breast ultrasound requested as described above to evaluate a new retroareolar mass. BI-RADS Category 0 - Assessment Incomplete: Need additional imaging evaluation Breast Density - Category B - Scattered areas of fibroglandular density
== END ==
PROVIDERS: PCP Nurse Practitioner; Visit Provider Nurse Practitioner
DX: Z12.31 Encounter for screening mammogram for malignant neoplasm of breast (principal); Z80.3 Family history of malignant neoplasm of breast; R92.8 Other abnormal and inconclusive findings on diagnostic imaging of breast
CPT/HCPCS: 77063; 77067

== ENCOUNTER → 2022-03-12 01:27 | Outpatient (CLI) | payer MEDICAID, SELFPAY ==
--- NOTE | 2022-03-12 10:15 | DI.MAMMO_ITS ---
Exam(s) MG MAMMO SCREEN CALL BACK UNI US BREAST RT LIMITED EXAM: MG MAMMO SCREEN CALL BACK UNI and U/S breast RT limited CLINICAL HISTORY: F/U ABNL MAMMO, WELL-CIRCUMSCRIBED 11 MM MASS RETROAREOLAR, RT BREAST. TECHNIQUE: Craniocaudal and mediolateral oblique Full Field Digital Mammography views of the right b reast with Computer Aided Diagnosis followed by Tomosynthesis and right breast ultrasound. COMPARISON: Comparison is made with prior examinations. FINDINGS: Mammography/Tomosynthesis: Masses/Architectural Distortion: The additional views again show a well-circumscribed nodule in the r etroareolar region of the right breast. Microcalcifictions: No suspicious pleomorphic-type are seen. Skin Thickening/Nipple Retraction: None. Limited right breast US: Echotexture: Normal appearance of the glandular tissue. Shadowing: No suspicious foci. Cyst: There is a lobulated simple cyst in the retroareolar region of the right breast measuring 0.8 x 0.7 x 1.1 cm. No internal blood flow. There is a 2nd ovoid radially oriented simple cyst at the 11 o'clock position of the right breast 3 cm from the nipple measuring 0.6 x 0.4 x 0.3 cm. Solid lesions: None seen. Ductal dilation: None. IMPRESSION: 1. Lobulated cyst in the retroareolar region of the right breast corresponding to the mammographic ab normality. 2. A 3 month right breast ultrasound for re-evaluation is recommended. 3. The findings were discussed with the patient on the date of the examination. BI-RADS Category 3 - Probably Benign Finding: Recommend follow-up imaging in 3 months Breast Density - Category B - Scattered areas of fibroglandular density Breast density Category C or D implies that the patient has dense breast tissue. Dense breast tissue can make it harder to find cancer on a mammogram. Dense breast tissue is also associated with an incr eased risk of breast cancer. This information about the result of the mammogram report was provided to the patient to raise their awareness. Use this report when you speak with the patient about their risks for breast cancer, which includes their family history. At that time, you may recommend additional screening tests (Ultrasoun d or MRI) as these tests may add significant information. A negative radiographic report should not delay biopsy if a dominant or clinically suspicious mass is present. Up to ten percent of cancers are not identified on mammography. A negative report may reinforce clinical impression. Adenosis and dense breasts may obscure an underlying neoplasm. False positive reports average 6 to 10%. Patient will receive a letter notifying them of these results.
== END ==
PROVIDERS: PCP Nurse Practitioner; Visit Provider Nurse Practitioner
DX: Z12.31 Encounter for screening mammogram for malignant neoplasm of breast (principal); R92.8 Other abnormal and inconclusive findings on diagnostic imaging of breast; N60.01 Solitary cyst of right breast
CPT/HCPCS: 76642; 77063; 77067

== ENCOUNTER → 2022-04-09 01:45 | Outpatient (CLI) | payer MEDICAID, SELFPAY ==
--- NOTE | 2022-04-09 12:00 | DI.US_ITS ---
Exam(s) US THYROID EXAM: US THYROID CLINICAL HISTORY: THYROID NODULE, E04.1. TECHNIQUE: Ultrasound thyroid performed using standard protocol. COMPARISON: US US THYROID from 03/03/2020 FINDINGS: ISTHMUS: 4 mm RIGHT LOBE: Size: 4.8 x 1.7 x 1.7 cm Echogenicity: Normal. Vascularity: Normal. Nodules: Multiple small colloid cysts. LEFT LOBE: Size: 4.7 x 1.8 x 1.9 cm Echogenicity: Normal. Vascularity: Normal. Nodules: 1.7 x 0.9 x 1.2 centimeter cyst lower pole. Adjacent partially calcified lesion difficult to evaluate and measures due to shadowing from the calcifications. It is located at the periphery of the thyroid which causes mild deformation of the thyroid contour. There is no definite extrathyroid al extension. It is measured at 0.5 x 0.3 x 0.3 cm. This is smaller than measured previously may be secondary to measurement error. TR 5.. OTHER FINDINGS: No enlarged lymph nodes. IMPRESSION: Roughly stable size and appearance of solid calcified nodule inferior pole left lobe. TR 5. DATA REPOSITORY:
== END ==
PROVIDERS: PCP Nurse Practitioner; Visit Provider Physician Assistant
DX: E04.1 Nontoxic single thyroid nodule (principal)
CPT/HCPCS: 76536

== ENCOUNTER 2022-06-07 02:30 | Outpatient (CLI) | payer MEDICAID, SELFPAY ==
--- NOTE | 2022-06-07 13:00 | DI.DEXA_ITS ---
Exam(s) XR DEXA BONE DENSITY W/WO VISHAL EXAM: XR DEXA BONE DENSITY W/WO VISHAL CLINICAL HISTORY: screening for osteoporosis in postmenopausal woman,z78.0 TECHNIQUE: COMPARISON: No exams were available for comparison FINDINGS: Lateral Spine Image: Unremarkable. No compression deformities identified. Left hip: Total T-Score: -1.0 Total Z-Score: 0.2 T- and Z-scores: Within normal limits. Lumbar Spine: Total T-Score: -0.6 Total Z-Score: 1.1 T- and Z-scores: Within normal limits. IMPRESSION: No evidence of osteoporosis.
== END 2022-06-07 02:50 ==
LOC: DI 02:31
PROVIDERS: PCP Nurse Practitioner; Visit Provider Nurse Practitioner
DX: Z13.820 Encounter for screening for osteoporosis (principal); Z78.0 Asymptomatic menopausal state
CPT/HCPCS: 77080

== ENCOUNTER 2022-06-19 02:36 | Outpatient (CLI) | payer MEDICAID, SELFPAY ==
--- NOTE | 2022-06-19 | DI.MAMMO_ITS ---
Exam(s) MG MAMMO DIAGNOSTIC UNI US BREAST RT COMPLETE EXAM: MG MAMMO DIAGNOSTIC UNI- RIGHT AND COMPLETE RIGHT BREAST ULTRASOUND CLINICAL HISTORY: F/U ABNL IMAGING, LOBULATED CYSTS, 3 MO F/U. TECHNIQUE: Both CC and MLO mammographic images of the right breast were obtained with 3D tomosynthes is technique and utilizing computer aided detection (CAD). Complete ultrasound examination of right breast was performed including all 4 quadrants, the retroare olar region and right axilla. COMPARISON: Prior mammograms were reviewed, the most recent being February 2022. FINDINGS: DIAGNOSTIC RIGHT BREAST MAMMOGRAM: The previously described nodular density at 12 o'clock retroareolar position is unchanged on the mamm ogram. Other smaller nodule laterally on the mammogram corresponds to a microcyst on the ultrasound today. There are no new spiculated masses nor malignant-appearing microcalcification groups the right breast and there is no new architectural distortion or skin thickening-traction. COMPLETE RIGHT BREAST ULTRASOUND: At the 12 o'clock position there is again noted a 9 x 6 millimeter benign cyst which corresponds to t he nodule at the 12 o'clock retroareolar position on the mammogram and is unchanged from prior studie s. There are no solid internal echoes. This is a simple cyst. In addition, there is a 5 x 3 millimeter microcyst at the 9 o'clock position which corresponds to ano ther nodule on the mammogram. At the 10 o'clock position there are 2 adjacent benign microcysts which both measure approximately 3 millimeters. Most importantly, there are no solid lesions in all 4 quadrants. Scanning of the right axilla reveals benign-appearing lymph nodes. No significant lymphadenopathy. IMPRESSION: Stable benign-appearing mammographic and ultrasound findings in the right breast. The dominant nodul e is a 9 millimeter 12 o'clock position retroareolar region cyst. There are few other microcysts lat eral aspect of the breast also noted as described above. Most importantly, there are no solid lesion s and there is no significant ipsilateral axillary adenopathy. Appropriate follow-up is to keep this patient on a yearly mammogram schedule, with earlier imaging if a self detected breast changes noted. The patient was informed of the findings and follow-up recommendations by myself prior to leaving the department today. BI-RADS Category 2 - Benign Findings Breast Density - Category B - Scattered areas of fibroglandular density Breast density Category C or D implies that the patient has dense breast tissue. Dense breast tissue can make it harder to find cancer on a mammogram. Dense breast tissue is also associated with an incr eased risk of breast cancer. This information about the result of the mammogram report was provided to the patient to raise their awareness. Use this report when you speak with the patient about their risks for breast cancer, which includes their family history. At that time, you may recommend additional screening tests (Ultrasoun d or MRI) as these tests may add significant information. A negative radiographic report should not delay biopsy if a dominant or clinically suspicious mass is present. Up to ten percent of cancers are not identified on mammography. A negative report may reinforce clinical impression. Adenosis and dense breasts may obscure an underlying neoplasm. False positive reports average 6 to 10%. Patient will receive a letter notifying them of these results.
== END 2022-06-19 02:56 ==
PROVIDERS: PCP Nurse Practitioner; Visit Provider Nurse Practitioner
DX: R92.8 Other abnormal and inconclusive findings on diagnostic imaging of breast (principal); N60.01 Solitary cyst of right breast; N60.11 Diffuse cystic mastopathy of right breast; R59.0 Localized enlarged lymph nodes
CPT/HCPCS: 76642; 77061; 77065; G0279

== ENCOUNTER 2023-02-27 03:31 | Outpatient (CLI) | payer MEDICAID, SELFPAY ==
[2023-02-27 09:43] LABS: Abs Immature Grans 0.01 10^3/uL (0.0-0.06); Absolute Basophil Count 0.07 10^3/uL (0.0-0.2); Absolute Eosinophil Count 0.09 10^3/uL (0.0-0.7); Absolute Lymphocyte Count 1.24 10^3/uL (1.2-3.4); Absolute Monocyte Count 0.28 10^3/uL (0.1-0.8); Absolute Neutrophil Count 1.49 10^3/uL (1.2-6.7); Basophils % 2.2; Eosinophils % 2.8; HCT 41.4 % (36.0-46.0); HGB 13.5 g/dL (11.2-15.7); Immature Grans % 0.3; MCH 25.7 pg (27.0-33.0); MCHC 32.6 % (32.0-36.0); MCV 79 fL (80-95); MPV 10.8 fL (8.0-11.0); Monocytes % 8.8; Neutrophils % 46.9; Platelet Count 273 10^3/uL (130-400); RBC 5.26 10^6/uL (3.93-5.22); RDW 13.2 % (11.7-14.6); RDW-SD 37.5 fL; WBC 3.18 10^3/uL (4.4-10.8)
[2023-02-27 09:51] LABS: Hemoglobin A1C 5.8 % (<5.7)
[2023-02-27 10:20] LABS: ALT 45 U/L (14-59); AST 23 U/L (15-37); Albumin 3.8 g/dL (3.4-5.0); Alkaline Phosphatase 75 U/L (46-116); Anion Gap 9.6 mmol/L (3-11); BUN 28 mg/dL (7-18); Bilirubin, Total 0.4 mg/dL (0.2-1.0); CO2 27.4 mmol/L (21.0-32.0); CREATININE 1.5 mg/dL (0.55-1.02); Calculated LDL 91 mg/dL (<100); Chloride 99 mmol/L (98-107); Cholesterol 170 mg/dL (<200); Estimated GFR 38.67 (mL/min/1.73m2); Glucose 100 mg/dL (74-106); HDL Cholesterol 61 mg/dL (40-60); Potassium 4.4 mmol/L (3.5-5.1); Sodium 136 mmol/L (136-145); Total Protein 7.7 g/dL (6.4-8.2); Triglyceride 92 mg/dL (<150)
== END 2023-02-27 03:32 | disposition home or self-care (01) ==
LOC: LBO 03:31
PROVIDERS: PCP Nurse Practitioner; Referring Provider Nurse Practitioner; Visit Provider Nurse Practitioner
DX: E78.5 Hyperlipidemia, unspecified (principal); I10 Essential (primary) hypertension; N18.30 Chronic kidney disease, stage 3 unspecified; R73.01 Impaired fasting glucose; J45.909 Unspecified asthma, uncomplicated
CPT/HCPCS: 36415; 80053; 80061; 83036; 85025

== ENCOUNTER 2023-03-12 13:51 | Outpatient (REF) | payer MEDICAID, SELFPAY ==
--- NOTE | 2023-03-12 13:30 | PAPFT_PTH ---
PATIENT: Birgit Isaac LOC: [facility] U#:[id number] AGE/SX: 62/F ROOM: RE03/12/[address]: Callie Carolina : 1960 BED: DIS: 03/12/2023 SPEC #: [id number] RECD: 03/12/23 17:56 STATUS: DEREK SRAVANI #: [id number] ELIS: 03/12/23 13:[address]: Callie Carolina DEPT: [facility] Cytology RECD BY: Evie Lim ENTERED: 03/12/23 17:56 SP TYPE: PAPFT JANEY DR: Selena Mon APRN Tissues: 1 - CX/ENDOCX FOR PAP SMEARS Procedures: PAP THIN PREP/UVM Screening HPV DNA PROBE Comments: [id number] (HPV 16 & 18/45)
== END 2023-03-12 13:52 | disposition home or self-care (01) ==
LOC: LBN 13:51
PROVIDERS: PCP Nurse Practitioner; Visit Provider Obstetrics & Gynecology Gynecology
DX: Z12.4 Encounter for screening for malignant neoplasm of cervix (principal); Z11.51 Encounter for screening for human papillomavirus (HPV); R87.810 Cervical high risk human papillomavirus (HPV) DNA test positive
CPT/HCPCS: 88142; 87624

== ENCOUNTER → 2023-04-05 02:44 | Outpatient (CLI) | payer MEDICAID, SELFPAY ==
--- NOTE | 2023-04-05 | DI.US_ITS ---
Exam(s) US THYROID EXAM: US THYROID CLINICAL HISTORY: MULTIPLE THYROID NODULES,COLLOID THYROID NODULE,E04.1,E04.2. TECHNIQUE: Ultrasound thyroid performed using standard protocol. COMPARISON: US US THYROID from 07/02/2019 US US THYROID from 03/03/2020 US US BREAST RT LIMITED from 03/12/2022 US US THYROID from 04/09/2022 US US BREAST RT COMPLETE from 06/19/2022 FINDINGS: ISTHMUS: 4 mm RIGHT LOBE: Size: 5.0 x 1.9 x 1.8 cm Echogenicity: Normal. Vascularity: Normal. Nodules: Small cysts. LEFT LOBE: Size: 3.9 x 1.7 x 1.8 cm Echogenicity: Normal. Vascularity: Normal. Nodules: Stable appearance nodule with macrocalcifications lower pole left lobe now measured at 0.7 x 0.6 x 0.4 cm. It is taller than wide. Does not appear to show extrathyroidal extension on current exam. TR 5. OTHER FINDINGS: None. IMPRESSION: Stable appearance of thyroid nodule lower pole left lobe since 2019. TR 5. DATA REPOSITORY:
== END ==
PROVIDERS: PCP Nurse Practitioner; Visit Provider Physician Assistant
DX: E04.2 Nontoxic multinodular goiter (principal)
CPT/HCPCS: 76536

== ENCOUNTER → 2023-05-03 00:46 | Outpatient (CLI) | payer MEDICARE, MEDICAID, SELFPAY ==
--- NOTE | 2023-05-03 07:45 | DI.MAMMO_ITS ---
Exam(s) MAMMO SCREENING EXAM: MAMMO SCREENING CLINICAL HISTORY: screening.Z12.39. TECHNIQUE: Bilateral full field digital CC and MLO mammographic images were obtained with 3D tomosyn thesis and utilizing computer aided detection (CAD). COMPARISON: Prior mammograms were reviewed. Ultrasound reviewed. FINDINGS: Asymmetric nodular densities in the breasts appear unchanged. The dominant nodule at 12 o'clock retr oareolar region of the right breast is unchanged and has been shown to be a cyst on prior breast ultr asound. There are no new spiculated masses nor malignant appearing microcalcification groups. There is no significant architectural distortion nor skin thickening-retraction. IMPRESSION: Stable benign appearing findings. No radiographic evidence of malignancy. BI-RADS Category 2 - Benign Findings Breast Density - Category B - Scattered areas of fibroglandular density Breast density Category C or D implies that the patient has dense breast tissue. Dense breast tissue can make it harder to find cancer on a mammogram. Dense breast tissue is also associated with an incr eased risk of breast cancer. This information about the result of the mammogram report was provided to the patient to raise their awareness. Use this report when you speak with the patient about their risks for breast cancer, which includes their family history. At that time, you may recommend additional screening tests (Ultrasoun d or MRI) as these tests may add significant information. A negative radiographic report should not delay biopsy if a dominant or clinically suspicious mass is present. Up to ten percent of cancers are not identified on mammography. A negative report may reinforce clinical impression. Adenosis and dense breasts may obscure an underlying neoplasm. False positive reports average 6 to 10%. Patient will receive a letter notifying them of these results.
== END ==
PROVIDERS: PCP Nurse Practitioner; Visit Provider Nurse Practitioner
DX: Z12.31 Encounter for screening mammogram for malignant neoplasm of breast (principal); N60.01 Solitary cyst of right breast
CPT/HCPCS: 77063; 77067

== ENCOUNTER 2024-03-02 02:29 | Outpatient (CLI) | payer MEDICARE, MEDICAID, SELFPAY ==
[2024-03-02 11:19] LABS: Abs Immature Grans 0.05 10^3/uL (0.0-0.06); Absolute Basophil Count 0.08 10^3/uL (0.0-0.2); Absolute Eosinophil Count 0.09 10^3/uL (0.0-0.7); Absolute Lymphocyte Count 1.47 10^3/uL (1.2-3.4); Basophils % 1.7 %; HCT 41.8 % (36.0-46.0); HGB 13.7 g/dL (11.2-15.7); Immature Grans % 1.1 %; MCHC 32.8 % (32.0-36.0); MCV 80 fL (80-95); MPV 11.1 fL (8.0-11.0); Monocytes % 8.7 %; Neutrophils % 54.5 %; Platelet Count 324 10^3/uL (130-400); RBC 5.26 10^6/uL (3.93-5.22); RDW 13.3 % (11.7-14.6); RDW-SD 38.1 fL; WBC 4.59 10^3/uL (4.4-10.8)
[2024-03-02 11:25] LABS: ALT 35 U/L (14-59); AST 26 U/L (15-37); Albumin 3.9 g/dL (3.4-5.0); Alkaline Phosphatase 74 U/L (46-116); Anion Gap 10.4 mmol/L (3-11); BUN 26 mg/dL (7-18); Bilirubin, Total 0.56 mg/dL (0.2-1.0); CO2 27.6 mmol/L (21.0-32.0); CREATININE 1.3 mg/dL (0.55-1.02); Calcium 9.6 mg/dL (8.5-10.1); Calculated LDL 94 mg/dL (<100); Chloride 100 mmol/L (98-107); Cholesterol 173 mg/dL (<200); Estimated GFR 45.63 (mL/min/1.73m2); Glucose 92 mg/dL (74-106); HDL Cholesterol 61 mg/dL (40-60); Potassium 3.5 mmol/L (3.5-5.1); Sodium 138 mmol/L (136-145); Total Protein 7.9 g/dL (6.4-8.2); Triglyceride 94 mg/dL (<150)
== END 2024-03-02 02:30 | disposition home or self-care (01) ==
LOC: LBO 02:29
PROVIDERS: PCP Nurse Practitioner; Referring Provider Nurse Practitioner; Visit Provider Nurse Practitioner
DX: N18.30 Chronic kidney disease, stage 3 unspecified (principal); E78.5 Hyperlipidemia, unspecified; I10 Essential (primary) hypertension; R73.03 Prediabetes
CPT/HCPCS: 36415; 80053; 80061; 83036; 85025

== ENCOUNTER 2024-03-24 03:45 | Outpatient (CLI) | payer MEDICARE, SELFPAY ==
--- NOTE | 2024-03-24 13:00 | NS.NUTBLAN_ITS ---
Assessment: Ms. Isaac presents for nutritional counseling for prediabetes. Her A1C this month was 6.0. One year ago in February it was 5.8. Her current weight is 66 kg and a year ago was 70 kg. She has lost 6% of her body weight in a year and is most often moderately physically active for 150 minutes per week. She either walks, shops, cleans, or hikes throughout the week to meet the goal of 150 minutes weekly. She reports the variety in her intake is somewhat limited by her diagnosis of interstitial cystitis. She has to avoid many seasonings and most fruits. Her breakfast consists of oatmeal bread toast and eggs or Cheerios and oat milk or oatmeal. Lunch varies and is sometimes a soup or a salad. Dinner is often a meat, a starch, and a vegetable. Once a week she may have a pasta dish and once a month she may have pizza. Nutrition Diagnosis: Altered nutrition related laboratory values as indicated by HgbA1C of 6.0 c/w prediabetes. Intervention: We discussed the evidence based recommendations of diabetes prevention and acknowledged her excellent efforts at diabetes prevention including her 6% weight loss and he aiming toward 150 minutes per week of moderate intensity physical activity. We reviewed the plate method for portioning out food and carbohydrates as well as recommended that she keep her carbohydrate intake to 30 - 45 grams per meal. Encouraged Ms. Isaac to include plant proteins as much as possible given her history of hyperlipidemia and she stated she does enjoy them. Ms. Isaac verbalized an excellent understanding of the nutritional information provided. As she stated she does not go on line much, I said I would send her some recipes and meal ideas that could be included as part of her nutrition therapy. Monitoring and Evaluation: Ms. Isaac will self monitor her eating and physical activity regimen. Evaluation of A1C is recommended yearly at this time. Thank you for this referral.
== END 2024-03-24 03:46 | disposition home or self-care (01) ==
LOC: DS 03:45
PROVIDERS: PCP Nurse Practitioner; Visit Provider Dietitian, Registered
DX: R73.03 Prediabetes (principal)
CPT/HCPCS: 97802

== ENCOUNTER 2024-04-02 10:20 | Outpatient (REF) | payer MEDICARE, SELFPAY ==
--- NOTE | 2024-04-02 09:50 | PAPFT_PTH ---
PATIENT: Birgit Isaac LOC: [facility] U#:[id number] AGE/SX: 63/F ROOM: RE04/02/[address]: Callie Carolina : 1960 BED: DIS: 04/02/2024 SPEC #: [id number] RECD: 04/02/24 12:54 STATUS: DEREK REMyrna #: [id number] ELIS: 04/02/24 09:[address]: Callie Carolina DEPT: [facility] Cytology RECD BY: Evie Lim ENTERED: 04/02/24 12:55 SP TYPE: PAPFT JANEY DR: Selena Mon APRN Tissues: 1 - CX/ENDOCX FOR PAP SMEARS Procedures: PAP THIN PREP/UVM Screening HPV DNA PROBE Comments: [id number] (HPV 16 & 18/45)
== END 2024-04-02 10:21 | disposition home or self-care (01) ==
LOC: LBN 10:20
PROVIDERS: PCP Nurse Practitioner; Visit Provider Obstetrics & Gynecology Gynecology
DX: Z12.4 Encounter for screening for malignant neoplasm of cervix (principal); Z91.89 Other specified personal risk factors, not elsewhere classified
CPT/HCPCS: 88142; 87624

== ENCOUNTER 2024-04-08 00:53 | Outpatient (CLI) | payer MEDICARE, SELFPAY ==
--- NOTE | 2024-04-08 07:15 | DI.US_ITS ---
Exam(s) US THYROID EXAM: US THYROID CLINICAL HISTORY: Annual thyroid US,f/u thyroid nodule,e04.1. TECHNIQUE: Ultrasound thyroid performed using standard protocol. COMPARISON: US US THYROID from 2019 through 04/05/2023 FINDINGS: ISTHMUS: 4 mm RIGHT LOBE: Size: 4.9 x 1.9 by 1.8 cm Echogenicity: Normal. Vascularity: Normal. Nodules: No suspicious nodules. Small cysts. LEFT LOBE: Size: 4.8 x 1.8 x 1.8 cm Echogenicity: Normal. Vascularity: Normal. Nodules: Lower pole 0.6 x 0.7 x 0.4 centimeter solid hypoechoic nodule with macrocalcifications, tall er than wide, TR 5. OTHER FINDINGS: None. IMPRESSION: Stable size and appearance of TR 5 nodule at the lower pole left lobe of thyroid. DATA REPOSITORY:
== END 2024-04-08 01:13 ==
LOC: DI 00:53
PROVIDERS: PCP Nurse Practitioner; Visit Provider Physician Assistant
DX: E04.1 Nontoxic single thyroid nodule (principal)
CPT/HCPCS: 76536

== ENCOUNTER 2024-05-04 01:39 | Outpatient (CLI) | payer MEDICARE, SELFPAY ==
--- NOTE | 2024-05-04 07:00 | DI.MAMMO_ITS ---
Exam(s) MAMMO SCREENING EXAM: MAMMO SCREENING CLINICAL HISTORY: screening,z12.39. TECHNIQUE: Bilateral full field digital CC and MLO mammographic images were obtained with 3D tomosyn thesis and utilizing computer aided detection (CAD). COMPARISON: Prior mammograms were reviewed. Prior ultrasound May 2022 was reviewed. Significant family history; sister with breast cancer FINDINGS: Fibroglandular tissue pattern is again noted be moderately dense. Previously described nodular densities in the right breast, shown to be cysts on ultrasound, are stab le. In the opposite-left breast there is a new well-defined nodular density measuring 9 x 8 mm located 3. 5 cm in from the nipple on the CC view, slightly medial of center. Spot compression view and ultraso und recommended. There are no malignant-appearing microcalcification groups in this region or elsewhere in either [address] There is no significant architectural distortion nor skin thickening-retraction. IMPRESSION: 1. Stable benign-appearing right breast findings. 2. New 8 x 9 mm left breast nodule. Spot compression CC view and ultrasound recommended. BI-RADS Category 0 - Incomplete: Need additional imaging evaluation Breast Density - Category C - Heterogeneously dense Breast density Category C or D implies that the patient has dense breast tissue. Dense breast tissue can make it harder to find cancer on a mammogram. Dense breast tissue is also associated with an incr eased risk of breast cancer. This information about the result of the mammogram report was provided to the patient to raise their awareness. Use this report when you speak with the patient about their risks for breast cancer, which includes their family history. At that time, you may recommend additional screening tests (Ultrasoun d or MRI) as these tests may add significant information. A negative radiographic report should not delay biopsy if a dominant or clinically suspicious mass is present. Up to ten percent of cancers are not identified on mammography. A negative report may reinforce clinical impression. Adenosis and dense breasts may obscure an underlying neoplasm. False positive reports average 6 to 10%. Patient will receive a letter notifying them of these results.
== END 2024-05-04 01:59 ==
LOC: DI 01:39
PROVIDERS: PCP Nurse Practitioner; Visit Provider Nurse Practitioner
DX: Z12.31 Encounter for screening mammogram for malignant neoplasm of breast (principal); D24.1 Benign neoplasm of right breast; R92.333 Mammographic heterogeneous density, bilateral breasts
CPT/HCPCS: 77063; 77067

== ENCOUNTER 2024-05-08 01:01 | Outpatient (CLI) | payer MEDICARE, SELFPAY ==
--- NOTE | 2024-05-08 | DI.US_ITS ---
Exam(s) MG MAMMO SCREEN CALL BACK UNI US BREAST LT COMPLETE EXAM: MG MAMMO SCREEN CALL BACK UNI - LEFT AND COMPLETE LEFT BREAST ULTRASOUND CLINICAL HISTORY: NEW 8X9 MM LEFT BREAST NODULE R92.8 ABNL MAMMO. TECHNIQUE: Unilateral LEFT BREAST spot mammographic images obtained with 3D tomosynthesisand utilizi ng computer aided detection (CAD). . Complete LEFT breast Ultrasound was also performed, including all 4 quadrants, the retroareolar regio n, and the ipsilateral axilla. COMPARISON: Prior mammograms were reviewed. This additional imaging was performed due to findings described on the recent screening mammogram of 05/04/2024. FINDINGS: DIAGNOSTIC MAMMOGRAM: Additional spot compression mammographic view performed todayreveals this round nodule persists. We proceeded with ultrasound COMPLETE LEFT BREAST ULTRASOUND: Ultrasound performed today reveals a 7 mm cyst at the 6 o'clock position corresponding to the new nod ule on the mammogram. In addition to this finding there are other smaller benign microcysts evident at the 1 o'clock and 2 o'clock positions. Also at 3 o'clock position.. Most importantly, there are no solid lesions seen in all 4 quadrants. Scanning of the ipsilateral axilla reveals no significant adenopathy. IMPRESSION: 1. There is a 7 mm benign cyst at the 6 o'clock position left breast corresponding to the new round nodule seen at this location on the recent screening mammogram. 2. Other smaller microcysts are also noted as described above. Appropriate follow-up is repeat left breast mammogram and ultrasound in 6 months, with earlier imagi ng if a self detected breast change is noted. The patient was informed of these findings and recommendations by myself prior to leaving the [facility] ent today. BI-RADS Category 3 - 6 month - Probably Benign Finding: Recommend follow-up mammography in 6 months Breast Density - Category B - Scattered areas of fibroglandular density Breast density Category C or D implies that the patient has dense breast tissue. Dense breast tissue can make it harder to find cancer on a mammogram. Dense breast tissue is also associated with an incr eased risk of breast cancer. This information about the result of the mammogram report was provided to the patient to raise their awareness. Use this report when you speak with the patient about their risks for breast cancer, which includes their family history. At that time, you may recommend additional screening tests (Ultrasoun d or MRI) as these tests may add significant information. A negative radiographic report should not delay biopsy if a dominant or clinically suspicious mass is present. Up to ten percent of cancers are not identified on mammography. A negative report may reinforce clinical impression. Adenosis and dense breasts may obscure an underlying neoplasm. False positive reports average 6 to 10%. Patient will receive a letter notifying them of these results.
== END 2024-05-08 01:21 ==
LOC: DI 01:01
PROVIDERS: PCP Nurse Practitioner; Visit Provider Nurse Practitioner
DX: Z12.31 Encounter for screening mammogram for malignant neoplasm of breast (principal); R92.8 Other abnormal and inconclusive findings on diagnostic imaging of breast
CPT/HCPCS: 76642; 77063; 77067

== ENCOUNTER 2024-11-03 01:23 | Outpatient (CLI) | payer MEDICARE, SELFPAY ==
--- NOTE | 2024-11-03 06:30 | DI.US_ITS ---
Exam(s) US BREAST LT COMPLETE MG MAMMO DIAGNOSTIC UNI EXAM: MG MAMMO DIAGNOSTIC UNI-LEFT AND COMPLETE LEFT BREAST ULTRASOUND CLINICAL HISTORY: abn L mammo,6 MO F/U, R92.8,CYST AND MICROCYSTS. TECHNIQUE: Unilateral LEFT BREAST CC AND MLO AND SPOT CC mammographic images were obtained with 3D t omosynthesis technique and utilizing computer aided detection (CAD). COMPLETE LEFT BREAST ULTRASOUND was performed including all 4 quadrants as well as the left axilla. COMPARISON: Prior mammograms were reviewed, the most recent being April 2024.. Prior ultrasound April 2024 was also reviewed. FINDINGS: DIAGNOSTIC LEFT BREAST MAMMOGRAM: The round nodular density previously described is unchanged on the mammogram. There are no new spiculated masses nor new malignant-appearing microcalcification groups. No new architectural distortion or skin thickening-retraction. COMPLETE LEFT BREAST ULTRASOUND: The previously described 7-8 mm benign cyst at these 6 o'clock position is again noted, unchanged in size and not exhibiting solid internal components. Another smaller microcysts at the 1 o'clock position is again noted. Previously described other micr ocysts at the 2 o'clock position is no longer seen. Most importantly, there are no solid lesions in all 4 quadrants. Scanning of the left axilla is negative for adenopathy. IMPRESSION: Stable benign findings. No radiographic evidence of malignancy. Stable benign ultrasound findings. Appropriate follow-up is to keep this patient on her yearly mammogram schedule, this implying the nex t bilateral mammogram would be in April 2025 or May 2005, with earlier imaging if a self detec dianna breast change is noted. The patient was informed of the findings and follow-up recommendations by myself prior to leaving the department today. BI-RADS Category 2 - Benign Findings Breast Density - Category C - The breast are heterogeneously dense, which may obscure small masses. Breast density Category C or D implies that the patient has dense breast tissue. Dense breast tissue can make it harder to find cancer on a mammogram. Dense breast tissue is also associated with an incr eased risk of breast cancer. This information about the result of the mammogram report was provided to the patient to raise their awareness. Use this report when you speak with the patient about their risks for breast cancer, which includes their family history. At that time, you may recommend additional screening tests (Ultrasoun d or MRI) as these tests may add significant information. A negative radiographic report should not delay biopsy if a dominant or clinically suspicious mass is present. Up to ten percent of cancers are not identified on mammography. A negative report may reinforce clinical impression. Adenosis and dense breasts may obscure an underlying neoplasm. False positive reports average 6 to 10%. Patient will receive a letter notifying them of these results.
== END 2024-11-03 01:43 ==
LOC: DI 01:23
PROVIDERS: PCP Nurse Practitioner; Visit Provider Nurse Practitioner
DX: R92.8 Other abnormal and inconclusive findings on diagnostic imaging of breast (principal); Z12.31 Encounter for screening mammogram for malignant neoplasm of breast
CPT/HCPCS: 76642; 77061; 77065; G0279

== ENCOUNTER 2025-04-06 13:46 | Outpatient (REF) | payer MEDICARE, SELFPAY | END 2025-04-06 13:47 | disposition home or self-care (01) | LOC: LBN 13:46 | PROVIDERS: Visit Provider Obstetrics & Gynecology | DX: Z12.4 Encounter for screening for malignant neoplasm of cervix (principal) | CPT/HCPCS: 88142; 87624 ==

== ENCOUNTER 2025-04-08 02:09 | Outpatient (CLI) | payer MEDICARE, SELFPAY ==
[2025-04-08 10:21] LABS: Abs Immature Grans 0.00 10^3/uL (0.0-0.06); HCT 38.2 % (36.0-46.0); HGB 12.6 g/dL (11.2-15.7); Immature Grans % 0.0 %; MCH 26.0 pg (27.0-33.0); MCHC 33.0 % (32.0-36.0); MCV 79 fL (80-95); MPV 10.7 fL (8.0-11.0); Platelet Count 261 10^3/uL (130-400); RBC 4.84 10^6/uL (3.93-5.22); RDW 13.2 % (11.7-14.6); RDW-SD 37.5 fL; WBC 4.17 10^3/uL (4.4-10.8)
[2025-04-08 15:40] LABS: Hemoglobin A1C 5.7 % (<5.7)
[2025-04-08 16:45] LABS: Anion Gap 8.2 mmol/L (3-11); BUN 25 mg/dL (9-23); CO2 26.8 mmol/L (20.0-31.0); Calcium 9.8 mg/dL (8.3-10.6); Chloride 101 mmol/L (98-107); Cholesterol 164 mg/dL (<200); Glucose 94 mg/dL (74-106); HDL Cholesterol 61 mg/dL (>40); Potassium 3.8 mmol/L (3.5-5.1); Sodium 136 mmol/L (136-145)
== END 2025-04-08 02:10 | disposition home or self-care (01) ==
LOC: LBO 02:09
DX: E78.5 Hyperlipidemia, unspecified (principal); I10 Essential (primary) hypertension; R73.03 Prediabetes
CPT/HCPCS: 36415; 80048; 80061; 83036; 85025

== ENCOUNTER 2025-04-26 21:13 | Outpatient (REF) | payer MEDICARE, SELFPAY | END 2025-04-26 21:14 | disposition home or self-care (01) | LOC: LBN 21:13 | DX: J02.9 Acute pharyngitis, unspecified (principal) | CPT/HCPCS: 87070 ==